=== PATIENT | male | born 1965 | race Caucasian/White ===

== ENCOUNTER 2022-04-21 13:05 | Emergency (ER) | payer MEDICARE, OTHER, MEDICAID, SELFPAY ==
[2022-04-21 13:11] VITALS: BP 130/84; PULSE 79; RESP 14; TEMP 36.9; O2SAT 98
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
[2022-04-21] MEDS: IBUPROFEN 400 MG TABLET PO (13:43)
--- NOTE | 2022-04-21 13:48 | ECG_ITS ---
Measurements Intervals [place] Rate: 123 P: 75 [place]: 121 QRS: 259 QRSD: 118 T: 60 QT: 304 QTc: 436 Interpretive Statements SINUS TACHYCARDIA RIGHT AXIS DEVIATION [QRS AXIS > 100] RIGHT BUNDLE BRANCH BLOCK [120+ ms QRS DURATION, UPRIGHT V1, 40+ ms S IN I/aVL/V4/V5/V6] ABNORMAL ECG Electronically Signed On 04-25-2022 9:54:16 CDT by Zach De Santiago M.D.
[2022-04-21 13:50] LABS: Basophils Percent Auto 0.2 % (0.2-1.2); Eosinophils Absolute Auto 0.2 K/mm3 (0-0.3); Eosinophils Percent Auto 1.8 % (0-4.4); Hematocrit 39.8 % (42.0-52.0); Hemoglobin 12.4 g/dL (14.0-18.0); Immature Granulocyte Absolute 0.03 K/mm3 (0.00-0.031); Immature Granulocyte Percent A 0.3 % (0-0.5); Lymphocytes Absolute Auto 1.06 K/mm3 (0.9-3.2); Lymphocytes Percent Auto 12.2 % (18.3-44.2); Mean Corpuscular HGB Conc 31.2 g/dl (32-36); Mean Corpuscular Volume 86.7 fl (80-100); Mean Platelet Volume 11.3 fl (7.4-10.4); Monocytes Absolute Auto 0.6 K/mm3 (0.1-0.6); Monocytes Percent Auto 7.4 % (2.6-8.5); Neutrophils Absolute Auto 6.8 K/mm3 (1.3-6.7); Neutrophils Percent Auto 78.1 % (45.5-73.1); Platelet Count Result 246 k/mm3 (150-375); Red Blood Count 4.59 M/mm3 (4.6-6.20); Red Cell Distribution Width 15.9 % (11.5-14.5); White Blood Count 8.7 K/mm3 (4.5-10.0)
[2022-04-21 13:58] LABS: Appearance Urine Clear (Clear); Bilirubin Urine Negative (Negative); Blood Urine Negative (Negative); Color Urine Yellow (Yellow); Glucose Urine UA Negative (Negative); Ketones Urine Negative (Negative); Leukocyte Esterase Ur Negative LEU/UL (Negative); Nitrate Urine Negative (Negative); Protein Urine Negative (Negative); Urobilinogen Urine 0.2 mg/dL (<2.0)
[2022-04-21 14:00] LABS: Alanine Aminotransferase 13 U/L (6-50); Alkaline Phosphatase 90 U/L (38-126); Anion Gap 10 mmol/L (8-16); Aspartate Amino Transferase 17 U/L (17-59); Bilirubin,Total 0.4 mg/dL (0.2-1.3); Blood Urea Nitrogen 21 mg/dL (9-20); Calcium 9.2 mg/dL (8.4-10.2); Carbon Dioxide 30 mmol/L (22-30); Chloride 97 mmol/L (98-107); Estimated CRCL calculation 121 ml/min; Estimated Glomerular Filt Rate > 60; Glucose 120 mg/dL (65-110); Potassium 3.1 mmol/L (3.4-5.0); Sodium 137 mmol/L (137-145)
[2022-04-21 14:03] LABS: Add Urine Microscopic? NO
[2022-04-21 14:14] LABS: Amphetamine Screen Urine Negative (Negative); Barbiturate Screen Urine Negative (Negative); Benzodiazepines Screen Urine Negative (Negative); Cannabinoid Screen Urine Negative (Negative); Cocaine Screen Urine Negative (Negative); Methadone Screen Urine Negative (Negative); Opiate Screen Urine Negative (Negative); Phencyclidine Screen Urine Negative (Negative)
--- NOTE | 2022-04-21 14:37 | PC.NURSE ---
when attempting to give patient PO potassium, pt refused and said piss on it. I don't want it. If the long-term would've been giving me my vitamins like they were supposed to, then I wouldn't need it . pt asked once again if he would take PO potassium. pt again stated, piss on it .
[2022-04-21 14:45] LABS: Acetaminophen < 10 ug/mL (10-30); Ethanol < 10 mg/dL (<10); Salicylate < 1.0 mg/dL (2-20)
--- NOTE | 2022-04-21 14:54 | PC.NURSE ---
EDP made aware of pt comments regarding PO medication and his refusal.
[2022-04-21 15:30] VITALS: BP 113/75; PULSE 80; RESP 14; O2SAT 100
[2022-04-21 16:29] VITALS: BP 142/78; PULSE 77; RESP 14; O2SAT 99
--- NOTE | 2022-04-21 17:47 | PC.NURSE ---
Jeb from crisis have eta of 20 min
[2022-04-21 17:56] LABS: SARS-CoV-2 RNA PCR Negative
--- NOTE | 2022-04-21 18:06 | PC.NURSE ---
[facility] at bedside to evlos pt
[2022-04-21 19:00] VITALS: BP 160/70; PULSE 70; RESP 14; O2SAT 100
--- NOTE | 2022-04-21 21:08 | PC.NURSE ---
[facility] called to ask triage question for questions. Pt refused to speak with [facility] intake at this time. Nurse will call back to speak with intake, call back number [phone]
--- NOTE | 2022-04-21 21:33 | PC.NURSE ---
[facility] called at this time and [facility] , deflected at this time. Crisis called and updated of no beds available and deflection at this time.
[2022-04-21] MEDS: NICOTINE (*PBKC) 21 MG PATCH 1 PATCH TRANSDERM (23:10)
[2022-04-21] MEDS: OLANZapine 10 MG INJ VIAL 5 MG IM (23:13)
[2022-04-21] MEDS: WATER, STERILE FOR INJECTION 10 ML VIAL XX (23:14)
[2022-04-21 23:16] VITALS: BP 157/66; PULSE 89; RESP 18; O2SAT 94
[2022-04-21 23:45] VITALS: BP 136/62; PULSE 87; RESP 20; O2SAT 98
--- NOTE | 2022-04-22 03:46 | PC.NURSE ---
[facility] has no beds available at this time and can try again in am per [facility], with Crisis, and no response from [facility] at this time.
[2022-04-22 05:04] VITALS: BP 165/87; PULSE 67; RESP 18; O2SAT 100
--- NOTE | 2022-04-22 05:10 | PC.NURSE ---
, [facility] Lois Ortiz,staff called for update of pt at this time and left number to be contacted for any new updates
--- NOTE | 2022-04-22 06:18 | PC.NURSE ---
Spoke with [facility], with crisis, no new update. Day shift crisis counslor will be starting shift in 10-15 minutes and then will re fax pt packet to [facility].
--- NOTE | 2022-04-22 07:12 | PC.NURSE ---
REport given to CHUN Pearson.
--- NOTE | 2022-04-22 09:16 | PC.NURSE ---
Spoke with Charleen with Crisis. faxed chart over to [facility] and [facility] and faxed face sheet to [facility].
--- NOTE | 2022-04-22 11:10 | PC.NURSE ---
Spoke with nurse from long-term asking for an update on patient disposition. Updated long-term that we do not have placement at this time. Spoke with Marce from [facility] who says [facility] denies admission due to pt medical needs.
--- NOTE | 2022-04-22 12:55 | PC.NURSE ---
[facility] called to speak with the pt. Pt was wheeled to the hallway to speak with them on the hallway phone. Pt got angry and hung up the phone during the conversation saying he was tired of being treated like a child and did not want to go to [facility].
[2022-04-22 13:30] VITALS: BP 124/66; PULSE 95; O2SAT 100
--- NOTE | 2022-04-22 18:18 | PC.NURSE ---
1700: kemar from crisis called regarding acceptance from any facility, no calls received 1709: spoke with kingsley at [facility], papers faxed 180: Kingsley at [facility] states he has not received paperwork yet 181: paperwork refaxed [phone] number verified with Hiram at [facility]
--- NOTE | 2022-04-22 18:59 | PC.NURSE ---
Called [facility], spoke with Danette and she confirmed fax was received at this time
--- NOTE | 2022-04-22 20:13 | PC.NURSE ---
[facility]risis states that [facility] attempted x3 different phone calls to contact facility and no answer, all mailboxes are full and no one will answer
--- NOTE | 2022-04-22 20:54 | PC.NURSE ---
facility contacted by charge nurse, ashley for patient to return to facility
[2022-04-22 21:45] VITALS: BP 120/70; PULSE 95; RESP 20; O2SAT 100
== END 2022-04-22 22:07 ==
PROVIDERS: Nurse Practitioner Family; Emergency Provider Emergency Medicine
DX: R45.6 Violent behavior (principal); Z20.822 Contact with and (suspected) exposure to COVID-19; I10 Essential (primary) hypertension; G35 Multiple sclerosis; I89.0 Lymphedema, not elsewhere classified; E66.01 Morbid (severe) obesity due to excess calories; Z68.41 Body mass index [BMI] 40.0-44.9, adult; N39.490 Overflow incontinence; F17.200 Nicotine dependence, unspecified, uncomplicated; R00.0 Tachycardia, unspecified; I45.10 Unspecified right bundle-branch block
CPT/HCPCS: 36415; 80053; 80307; 81003; 84443; 85025; 93005; 96372; 99284; A9270; C9803; U0003; U0005

== ENCOUNTER 2022-08-12 14:22 | Emergency (ER) | payer MEDICARE, OTHER, MEDICAID, SELFPAY ==
[2022-08-12] VITALS (22 sets, daily range): BP systolic 117–176; BP diastolic 69–85; PULSE 85–96; RESP 14–25; TEMP 36.1; O2SAT 92–100
--- NOTE | ~2022-08-12 | XR_ITS ---
Clinical Indication: Shortness of breath, covid 19 positive AP and lateral views of the chest: Comparison: None Findings: The lungs are clear, without evidence of focal consolidation or pleural effusion. Cardiome diastinal silhouette is unremarkable. Bones and soft tissues are unremarkable. Impression: Clear lungs. Reviewed, dictated and finalized at location [] [facility] [employer] Impression: Clear lungs.
--- NOTE | 2022-08-12 14:24 | ECG_ITS ---
Measurements Intervals [place] Rate: 95 P: 31 MO: 177 QRS: 18 QRSD: 110 T: 29 QT: 352 QTc: 443 Interpretive Statements SINUS RHYTHM POOR R-WAVE PROGRESSION COMPARED TO ECG 04/21/2022 13:48:27 THE PATIENT IS NO LONGER TACHYCARDIC AND THE RBBB HAS RESOLVED. Electronically Signed On 08-12-2022 15:49:46 TEST DEVELOPER by Rachelle Reeves M.D.
[2022-08-12 14:49] LABS: Hematocrit 39.5 % (42.0-52.0); Hemoglobin 12.5 g/dL (14.0-18.0); Mean Corpuscular HGB Conc 31.6 g/dl (32-36); Mean Corpuscular Hemoglobin 27.4 pg (26-34); Mean Corpuscular Volume 86.6 fl (80-100); Mean Platelet Volume 11.1 fl (7.4-10.4); Platelet Count Result 185 k/mm3 (150-375); Red Blood Count 4.56 M/mm3 (4.6-6.20); White Blood Count 13.2 K/mm3 (4.5-10.0)
[2022-08-12 15:03] LABS: Alanine Aminotransferase 19 U/L (6-50); Albumin Level 4.3 g/dL (3.5-5.1); Alkaline Phosphatase 76 U/L (38-126); Anion Gap 8 mmol/L (8-16); Aspartate Amino Transferase 22 U/L (17-59); Band Neutrophils Percent 16 % (0-6); Bilirubin,Total 0.4 mg/dL (0.2-1.3); Blood Urea Nitrogen 18 mg/dL (9-20); Calcium 8.5 mg/dL (8.4-10.2); Carbon Dioxide 28 mmol/L (22-30); Chloride 100 mmol/L (98-107); Estimated CRCL calculation 120 ml/min; Estimated Glomerular Filt Rate > 60; Glucose 112 mg/dL (65-110); Lymphocytes Absolute Manual 0.13 K/mm3 (1.1-4.5); Monocytes Absolute Manual 0.39 K/mm3 (0.1-0.90); Monocytes Percent Manual 3 % (3-9); Neutrophils Absolute Manual 12.67 K/mm3 (1.3-6.7); Neutrophils Percent Manual 80 % (46-73); Sodium 136 mmol/L (137-145); Total Cells Counted 100
[2022-08-12 15:04] LABS: Platelet Estimate Adequate (Adequate); Schistocytes None Seen (NORMAL)
--- NOTE | 2022-08-12 16:06 | ED.SOB ---
HPI - SOB/Dyspnea General Chief Complaint: Shortness of Breath/Dyspnea Stated Complaint: covid positive Time Seen by Provider: 08/12/22 14:36 History of Present Illness HPI Narrative: 57-year-old male presents from [facility] via EMS history of multiple sclerosis, COPD, depression, sleep apnea, hypertension presents to the emergency room stating he believes he is got pneumonia. Patient reports he has sinus congestion, productive cough and chest heaviness. States his symptoms been going on for a couple of days, and are similar to when he had pneumonia in the past. Patient also states that he was recently diagnosed with COVID. Related Data Allergies Allergy/AdvReac Type Severity Reaction Status Date / Time No Known Allergies Allergy Verified 04/21/22 13:17 Review of Systems Review of Systems: CONSTITUTIONAL: Denies fever, chills, or sweats. EYES: Denies visual changes, redness, or discharge. ENT: Reports sinus congestion CARDIOVASCULAR: Reports chest heaviness RESPIRATORY: Reports cough GASTROINTESTINAL: Denies abdominal pain, nausea, vomiting, or diarrhea. GENITOURINARY: Denies dysuria or hematuria. SKIN: Denies rash or itching. MUSCULOSKELETAL: Denies back pain, joint pain, or myalgia. NEUROLOGIC: Denies headache, numbness, dizziness, or weakness. PSYCHIATRIC: Denies anxiety or depression. [facility] Past Medical History Medical History Essential (primary) hypertension Morbid obesity MS (multiple sclerosis) Overflow incontinence Family History Family History Grandparent Family history of tuberculosis Hypertension Family history of malignant neoplasm Family history of heart disease in male family member before age 55 Sibling Family history of migraine headaches Hypertension Father Family history of malignant neoplasm Family history of heart disease in male family member before age 55 Mother Family history of malignant neoplasm Family history of heart disease in male family member before age 55 Social History Social History Smoking status: Light tobacco smoker Alcohol intake: current Substance use type: does not use Exam Narrative: GENERAL: Well-appearing, well-nourished, no physical limitations, and in no acute distress. HEAD: Normocephalic, atraumatic. EYES: Conjunctivae normal, PERRLA and EOMI. NECK: Supple. No adenopathy or masses. CHEST: Clear to auscultation. No respiratory distress. No wheezes rales or rhonchi. HEART: Regular rate and rhythm. No murmur heard. Normal peripheral pulses. ABDOMEN: Soft, nontender, nondistended, morbid obesity normal active bowel sounds. EXTREMITIES: Normal range of motion. No edema. No clubbing or cyanosis SKIN: Warm, dry, no rash. No noted wounds NEURO: No focal deficits. Alert and oriented x3. MAEW. CN's II-XI intact bilaterally PSYCH: Cooperative. Normal mood and affect. Course Vital Signs Vital signs: Vital Signs Temperature 36.1 C L 08/12/22 14:28 Pulse Rate 96 08/12/22 14:28 Respiratory Rate 14 08/12/22 14:28 Blood Pressure 117/81 08/12/22 14:28 Pulse Oximetry 98 08/12/22 14:28 Oxygen Delivery Room Air 08/12/22 14:28 Temperature 36.1 C L 08/12/22 14:28 Pulse Rate 92 08/12/22 16:45 Respiratory Rate 22 H 08/12/22 16:45 Blood Pressure 166/69 H 08/12/22 16:17 Pulse Oximetry 100 08/12/22 16:45 Oxygen Delivery Room Air 08/12/22 14:28 MDM - SOB/Dyspnea MDM Narrative Medical decision making narrative: 8-year-old male presents emergency room for evaluation of shortness of breath. Patient was recently diagnosed with COVID, and concerned that he might have developed pneumonia. Because of his dyspnea most likely related to COVID. Presentation not consistent with any acute cardiac etiology, his EKG showed no signs of ischemia. Chest x-ray s
[2022-08-12] MEDS: methylPREDNISolone SOD SUCC 125 MG VIAL IV PUSH (16:29)
[2022-08-12 17:10] LABS: D Dimer 0.57 ug/mL (<0.48)
[2022-08-12 17:22] LABS: Troponin I < 0.012 ng/mL (0.000-0.034)
[2022-08-12 17:32] LABS: NT Pro B Type Natriuretic Pept 211 pg/mL (5-100)
--- NOTE | 2022-08-12 18:48 | PC.NURSE ---
Pt. cleaned up, bedding change, given warm blanket
== END 2022-08-12 21:28 ==
PROVIDERS: Emergency Medicine; Emergency Provider Nurse Practitioner Family; PCP Internal Medicine
DX: U07.1 COVID-19 (principal); G35 Multiple sclerosis; J44.9 Chronic obstructive pulmonary disease, unspecified; I10 Essential (primary) hypertension; G47.30 Sleep apnea, unspecified; N39.490 Overflow incontinence; E66.01 Morbid (severe) obesity due to excess calories; Z68.41 Body mass index [BMI] 40.0-44.9, adult; R06.02 Shortness of breath; F17.200 Nicotine dependence, unspecified, uncomplicated
CPT/HCPCS: 36415; 71046; 80053; 83880; 84484; 85025; 85380; 93005; 96374; 99284; J2930

== ENCOUNTER 2022-10-17 08:00 | Emergency (ER) | payer MEDICARE, OTHER, MEDICAID, SELFPAY ==
[2022-10-17] VITALS (13 sets, daily range): BP systolic 187–188; BP diastolic 82–92; PULSE 60–77; RESP 16–20; TEMP 36.4; O2SAT 99–100
--- NOTE | 2022-10-17 09:04 | PC.NURSE ---
Care Coordination notified per patient request to be placed in a different facility.
[2022-10-17] MEDS: lisinopriL 20 MG TABLET PO (09:09)
[2022-10-17] MEDS: atenoloL 25 MG TABLET PO (09:09)
[2022-10-17] MEDS: hydroCHLOROthiazide 25 MG TABLET PO (09:09)
--- NOTE | 2022-10-17 09:46 | PCCCNOTE ---
Called to Ed to meet pt in rm 10. Pt is unhappy with care at current facility ([facility]). He would like to relocate to facility in [place] ( [facility]). I called [facility] and spoke with Milagros Moreira. Per Milagros pt was originally with [facility] and requested transfer to [facility] facility which was done. [facility] facility will not accept pt back. She states [facility] will accept pt back. Pt is [facility] resident and cost is covered by Medicaid and . I should get $30 flow thru. I attempted to call [facility] and was only able to get voice message and I left message.
--- NOTE | 2022-10-17 12:21 | PC.NURSE ---
Spoke to Suresh with care coordination at this time. He is working on placement for patient. Per Suresh he will come and update patient on plan of care. Hellen charge nurse notified
--- NOTE | 2022-10-17 12:47 | ED.GENADULT ---
HPI - General Adult General Chief complaint: Unspecified Stated complaint: htn Time Seen by Provider: 10/17/22 08:05 History of Present Illness HPI narrative: Patient is a 57-year-old male who presents to the ER with feeling angry at his retirement where he resides. Reports he did not bring him his hypertensive medication this morning when asked for and his blood pressure continued to climb so he decided come in for evaluation. He has no chest pain or chest pressure. No fever chills or sweats. He has no additional complaints other than wanting his morning medications. Related Data Allergies Allergy/AdvReac Type Severity Reaction Status Date / Time No Known Allergies Allergy Verified 04/21/22 13:17 Review of Systems Review of Systems: All systems reviewed & are unremarkable except as noted in HPI and below Constitutional: Constitutional: Denies chills and Denies fever(s) Cardiovascular: Cardiovascular: Denies chest pain, Reports leg edema (Chronic lymphedema) and Denies palpitations Respiratory: Respiratory: Denies cough, Denies dyspnea and Denies wheezing Gastrointestinal: Gastrointestinal: Denies abdominal pain, Denies nausea and Denies vomiting [facility] Past Medical History Medical History (Updated 10/17/22 @ 14:36 by Hiram Chapa MD) Chronic acquired lymphedema Essential (primary) hypertension Morbid obesity MS (multiple sclerosis) Overflow incontinence Family History Family History Grandparent Family history of tuberculosis Hypertension Family history of malignant neoplasm Family history of heart disease in male family member before age 55 Sibling Family history of migraine headaches Hypertension Father Family history of malignant neoplasm Family history of heart disease in male family member before age 55 Mother Family history of malignant neoplasm Family history of heart disease in male family member before age 55 Social History Social History Smoking status: Light tobacco smoker Alcohol intake: current Substance use type: does not use Exam Narrative: GENERAL: Well-appearing, morbidly obese, and in no acute distress. HEAD: Normocephalic, atraumatic. CHEST: Clear to auscultation. No respiratory distress. HEART: Regular rate and rhythm. Normal peripheral pulses. ABDOMEN: Soft, nontender, nondistended. EXTREMITIES: Normal range of motion. Left knee with mild bilateral lower extremities with chronic stasis changes. SKIN: Warm, dry, no rash. NEURO: Alert and oriented x3. PSYCH: Normal mood and affect. Course Course Emergency Course: Patient has been given home antihypertensives with improvement of blood pressure is the 150 systolic. Care coordination has been to speak with the patient about different nursing findings. Discharge. Vital Signs Vital signs: Vital Signs Temperature 97.6 F 10/17/22 07:53 Pulse Rate 71 10/17/22 07:53 Respiratory Rate 20 10/17/22 07:53 Blood Pressure 188/92 H 10/17/22 07:53 Pulse Oximetry 100 10/17/22 07:53 Oxygen Delivery Room Air 10/17/22 07:53 Temperature 97.6 F 10/17/22 07:53 Pulse Rate 71 10/17/22 13:00 Respiratory Rate 18 10/17/22 13:00 Blood Pressure 187/82 H 10/17/22 09:11 Pulse Oximetry 99 10/17/22 11:06 Oxygen Delivery Room Air 10/17/22 07:53 Medical Decision Making Vital Signs Vital Signs: Vital Signs Temperature 97.6 F 10/17/22 07:53 Pulse Rate 71 10/17/22 07:53 Respiratory Rate 20 10/17/22 07:53 Blood Pressure 188/92 H 10/17/22 07:53 Pulse Oximetry 100 10/17/22 07:53 Oxygen Delivery Room Air 10/17/22 07:53 Temperature 97.6 F 10/17/22 07:53 Pulse Rate 71 10/17/22 13:00 Respiratory Rate 18 10/17/22 13:00 Blood Pressure 187/82 H 10/17/22 09:11 Pulse Oximetry 99 10/17/22 11:06 Oxygen Delivery Room Air 10/17/22 07:53 Dis
--- NOTE | 2022-10-17 16:15 | PC.NURSE ---
pt sitting in wheelchair in hallway refusing to go back into room, pt demanding to go outside for a cigarette. pt informed he isn't allowed to go outside and smoke that he needed to continue to wait inside his room for EMS transport back to facility. pt yelling that he hasn't had anything to eat all day, pt was eating a sandwich upon initial assessment at 11:00. pt asked earlier if he wanted food and he said its just going to make him go to the bathroom more. pt wheeling self out to ED lobby while yelling and swearing at staff. mitochondrial disorders counselor Phyllis aware of situation, out to waiting room to talk to pt.
--- NOTE | 2022-10-17 16:28 | PC.NURSE ---
Patient given cab voucher, and assisted to waiting room due to patient insisting on smoking while waiting. Pt informed that this was a smoke free campus and pt stated he didn't care.
== END 2022-10-17 16:34 ==
PROVIDERS: Emergency Provider Emergency Medicine; PCP Internal Medicine
DX: I10 Essential (primary) hypertension (principal); G35 Multiple sclerosis; I89.0 Lymphedema, not elsewhere classified; N39.490 Overflow incontinence; E66.01 Morbid (severe) obesity due to excess calories; Z68.42 Body mass index [BMI] 45.0-49.9, adult; F17.200 Nicotine dependence, unspecified, uncomplicated
CPT/HCPCS: 99283; A9270

== ENCOUNTER 2023-09-02 00:17 | Inpatient (IN) | payer MEDICARE, OTHER, MEDICAID, SELFPAY ==
[2023-09-02] VITALS (10 sets, daily range): BP systolic 116–191; BP diastolic 52–89; PULSE 89–107; RESP 15–27; TEMP 36.5–38; O2SAT 92–100; BMI 52.2
--- NOTE | ~2023-09-02 | US_ITS ---
EXAMINATION: US venous doppler [facility] DATE: 09/02/2023 16:27 INDICATION: Left lower limb swelling. TECHNIQUE: Grayscale ultrasound images without and with compression and Doppler ultrasound images of the bilateral lower extremity veins were obtained. COMPARISON: None. FINDINGS: The visualized portions of right common femoral vein, profunda (deep) femoral vein, femoral vein, pop liteal vein, posterior tibial veins, and greater saphenous vein outflow are patent. The visualized portions of left common femoral vein, profunda femoral vein, femoral vein, popliteal v ein, posterior tibial veins, and greater saphenous vein outflow are patent. IMPRESSION: 1. No deep venous thrombosis. Reviewed, dictated and finalized at location E. EY RIDE OPERATOR
--- NOTE | ~2023-09-02 | XR_ITS ---
AP and lateral views of the left femur Clinical History: Infection Findings: No acute fracture or dislocation is seen. Osseous alignment is anatomic. Visualized joint s paces are grossly preserved. There is diffuse nonspecific subcutaneous soft tissue edema. Impression: Diffuse nonspecific subcutaneous soft tissue edema. Correlate bursitis or bland edema. No osseous or articular abnormality evident. Reviewed, dictated and finalized at [facility]. MAKER CUSTOM Impression: Diffuse nonspecific subcutaneous soft tissue edema. Correlate bursitis or bland edema. No osseous or articular abnormality evident.
--- NOTE | ~2023-09-02 | XR_ITS ---
Clinical Indication: Dyspnea AP and lateral views of the chest: Comparison: 08/12/2022 Findings: The lungs are clear, without evidence of focal consolidation or pleural effusion. Cardiome diastinal silhouette is within normal limits. Bones and soft tissues are unremarkable. Impression: Clear lungs. Reviewed, dictated and finalized at location . T DESK COORDINATOR Impression: Clear lungs.
--- NOTE | ~2023-09-02 | XR_ITS ---
AP and lateral views of the left tibia/fibula Clinical History: Infection Findings: No acute fracture or dislocation is seen. Osseous alignment is anatomic. Joint spaces are p reserved without significant erosive or degenerative change. There is diffuse soft tissue edema. Impression: Diffuse soft tissue edema, nonspecific. Correlate for bursitis or bland edema. No osseous or articular abnormality. Reviewed, dictated and finalized at [facility]. R Impression: Diffuse soft tissue edema, nonspecific. Correlate for bursitis or bland edema. No osseous or articular abnormality.
--- NOTE | ~2023-09-02 | XR_ITS ---
Left foot Technique: AP and lateral views were obtained. Clinical History: Infection Findings: No acute fracture or dislocation is seen. Osseous alignment is anatomic. Joint spaces are p reserved without erosive or degenerative change. Soft tissues are unremarkable. Impression: Unremarkable left foot radiographs. Reviewed, dictated and finalized at [facility]. OLE RAISER LOCKSTITCH Impression: Unremarkable left foot radiographs.
--- NOTE | 2023-09-02 00:58 | ECG_ITS ---
Measurements Intervals [place] Rate: 105 P: 21 [place]: 175 QRS: 71 QRSD: 100 T: 58 QT: 333 QTc: 442 Interpretive Statements SINUS TACHYCARDIA POOR R WAVE PROGRESSION, CONSIDER ANTERIOR INFARCT MINIMAL Q WAVES- INFERIOR LEADS BASELINE ARTIFACT- I, II, III, AVR, AVL, AVF, V1-V6 ABNORMAL ECG COMPARED TO ECG 08/12/2022 14:35:51 SINUS TACHYCARDIA NOW PRESENT Electronically Signed On 09-02-2023 6:52:58 EMERGENCY ROOM DOCTOR by Catracho Perez D.O.
--- NOTE | 2023-09-02 01:14 | ED.GENADULT ---
HPI - General Adult General Chief complaint: Extremity Injury, Lower Stated complaint: BLE EDEMA, PAIN, REDNESS, WHEEPING Source: patient Limitations: no limitations History of Present Illness HPI narrative: Patient is a 58-year-old male presents to the emergency department complaining of swelling in his legs. Patient states he has been having swelling in his legs for the past year on-call sides however today the left side got more swollen and red. Patient denies any recent antibiotic use. Patient denies fevers, diarrhea, melena, hematochezia, dysuria, hematuria, urinary frequency, urinary urgency, recent injuries, recent illness, sore throat, nasal congestion, numbness, weakness. Patient states he typically uses a walker to ambulate. Patient admits to shortness of breath today and was gradually and has not tried anything for it. Patient admits to having chest pain is entire life but states he has noticed a little bit more over the past few days, the middle of his chest, feels like truck is driving into it, nonradiating, tried ibuprofen, has not noticed anything making it better or worse and states that the pain comes and goes and has numbness in the ring and undergo a. Patient denies history of blood clots. Patient denies any new change medications. Patient denies history of heart disease. Patient is to being a smoker but denies history of COPD recent breathing treatments at home. Patient is to history of high blood pressure. Patient denies history of high cholesterol or diabetes. Related Data Allergies Allergy/AdvReac Type Severity Reaction Status Date / Time No Known Allergies Allergy Verified 04/21/22 13:17 Review of Systems Review of Systems: A 10 system review of systems was completed on the patient and is negative except for what is stated in the HPI. Nursing and ancillary documentation was reviewed. [facility] Past Medical History Medical History (Updated 09/02/23 @ 05:42 by Kentrell Orozco DO) Chronic acquired lymphedema Essential (primary) hypertension Morbid obesity MS (multiple sclerosis) Overflow incontinence Family History Family History Grandparent Family history of tuberculosis Hypertension Family history of malignant neoplasm Family history of heart disease in male family member before age 55 Sibling Family history of migraine headaches Hypertension Father Family history of malignant neoplasm Family history of heart disease in male family member before age 55 Mother Family history of malignant neoplasm Family history of heart disease in male family member before age 55 Social History Social History Smoking status: Light tobacco smoker Alcohol intake: current Substance use type: does not use Comments At time of signature, I have reviewed and agree with nursing past medical, surgical, social and family history unless otherwise noted. Please see the nursing chart for further information. There is no relevant family history pertinent to the presenting complaint. Exam Narrative: CONST: No acute distress. Obese. HENMT: Head is normocephalic and atraumatic. Dry mucous membranes. No posterior oropharynx erythema. EYES: No conjunctival icterus, injection, or pallor. PERRL. NECK: No meningeal signs. RESP: Able to speak in full sentences. Normal respiratory effort. diffuse scant end-expiratory wheeze. No focal adventitious breath sounds. Tachypneic. CARDIO: Tachycardic rate. Regular rhythm. 2+ DP and radial pulses bilaterally. GI: Nondistended. No tenderness to palpation. Soft. : No CVA tenderness to palpation. No Perineal or penile or scrotal erythema or fluctuance or crepitus or tenderness to palpation. SKIN: Diffuse erythema and warmth throughout the left lower extremity from the toes to the upper thigh without palpable fluctuance, no crepitus, erythema b
[2023-09-02] MEDS: IPRATROPIUM BR 0.02% INH SOLN 0.5 MG/2.5 ML VIAL INHALATION (01:20)
[2023-09-02] MEDS: ALBUTEROL SULFATE NEB 2.5 MG/3 ML INH INHALATION (01:20)
[2023-09-02] MEDS: ASPIRIN 325 MG TABLET PO (01:31)
[2023-09-02] MEDS: methylPREDNISolone SOD SUCC 40 MG VIAL IV PUSH (01:58)
[2023-09-02 02:01] LABS: Basophils Absolute Auto 0.1 K/mm3 (0.0-0.1); Basophils Percent Auto 0.3 % (0.2-1.2); Hematocrit 33.2 % (42.0-52.0); Hemoglobin 10.3 g/dL (14.0-18.0); Immature Granulocyte Absolute 0.24 K/mm3 (0.00-0.031); Immature Granulocyte Percent A 1.5 % (0-0.5); Lymphocytes Absolute Auto 0.37 K/mm3 (0.9-3.2); Lymphocytes Percent Auto 2.2 % (18.3-44.2); Mean Corpuscular Hemoglobin 26.1 pg (26-34); Mean Corpuscular Volume 84.1 fl (80-100); Mean Platelet Volume 9.9 fl (7.4-10.4); Monocytes Absolute Auto 0.5 K/mm3 (0.1-0.6); Neutrophils Absolute Auto 15.4 K/mm3 (1.3-6.7); Platelet Count Result 274 k/mm3 (150-375); Red Blood Count 3.95 M/mm3 (4.6-6.20); Red Cell Distribution Width 16.8 % (11.5-14.5); White Blood Count 16.5 K/mm3 (4.5-10.0)
[2023-09-02 02:08] LABS: INR 1.1
[2023-09-02 02:09] LABS: Magnesium 1.7 mg/dL (1.6-2.3); Partial Thromboplastin Time 47.8 SECONDS (22.3-36.8)
[2023-09-02 02:16] LABS: Alanine Aminotransferase 20 U/L (6-50); Albumin Level 2.9 g/dL (3.5-5.1); Alkaline Phosphatase 112 U/L (38-126); Anion Gap 7 mmol/L (8-16); Aspartate Amino Transferase 23 U/L (17-59); Bilirubin,Total 0.5 mg/dL (0.2-1.3); Blood Urea Nitrogen 15 mg/dL (9-20); Calcium 8.3 mg/dL (8.4-10.2); Carbon Dioxide 23 mmol/L (22-30); Chloride 98 mmol/L (98-107); Estimated CRCL calculation 169 ml/min; Estimated Glomerular Filt Rate > 60; Glucose 120 mg/dL (65-110); Lipase 67 U/L (23-300); Potassium 3.6 mmol/L (3.4-5.0); Sodium 128 mmol/L (137-145)
[2023-09-02 02:17] LABS: NT Pro B Type Natriuretic Pept 630 pg/mL (19.9-100)
[2023-09-02 02:20] LABS: Troponin I < 0.012 ng/mL (0.000-0.034)
[2023-09-02 02:32] LABS: CRP 23.7 mg/dL (<1.0)
[2023-09-02 02:47] LABS: D Dimer 0.88 ug/mL (<0.48)
[2023-09-02 02:55] LABS: Lactic Acid Reflex 0.7 mmol/L (0.7-2.0)
[2023-09-02 03:02] LABS: Influenza A QL RT-PCR Negative (Negative); Influenza B QL RT-PCR Negative (Negative); RSV RNA, RT-PCR Negative (Negative); SARS-CoV-2 RNA PCR Negative (Negative)
[2023-09-02] MEDS: CEFEPIME 2 GM/NS 50 ML 2 GM/50 ML BAG IVPB (03:12)
[2023-09-02] MEDS: metroNIDAZOLE 500 MG/ISO 100ML 500 MG/100 ML BAG 100 MG IVPB (05:13)
[2023-09-02 05:23] LABS: Appearance Urine Cloudy (Clear); Bacteria Urine None Seen /hpf; Bilirubin Urine Negative (Negative); Blood Urine 3+ (Negative); Color Urine Dark Yellow (Yellow); Glucose Urine UA Negative (Negative); Ketones Urine 1+ mg/dL (Negative); Leukocyte Esterase Ur Negative LEU/UL (Negative); Nitrate Urine Negative (Negative); Non Pathogenic Casts 0-2; Protein Urine 1+ mg/dL (Negative); RBC Urine >100 /hpf (0-2); Specific Grav Ur 1.028 (1.001-1.035); Squamous Epithelial Cell Urine None seen /hpf (Few); WBC Urine 0-5 /hpf; pH Urine 5.5 (5.0-9.0)
[2023-09-02 05:32] LABS: Add Urine Microscopic? YES
[2023-09-02 05:42] LABS: Troponin I < 0.012 ng/mL (0.000-0.034)
[2023-09-02] MEDS: VANCOMYCIN 1,250 MG/NS 250 ML 1,250 MG/250 ML BAG 166.67 MG IVPB (06:14)
[2023-09-02 06:29] LABS: MRSA (PCR) NOT DETECTED (NOT DETECTE)
[2023-09-02 08:34] LABS: Troponin I < 0.012 ng/mL (0.000-0.034)
[2023-09-02] MEDS: SODIUM CHLORIDE 0.9% IV 1,000 ML 125 ML IV CONT (14:12)
[2023-09-02] MEDS: VANCOMYCIN 1,500 MG/NS 500 ML 1,500 MG/500 ML BAG 250 MG IVPB (16:15)
--- NOTE | 2023-09-02 18:15 | PM.IMHP ---
H&P: HPI History of Present Illness Date/Time: 09/02/23 18:15 Chief Complaint: leg pain and swelling Narrative: 58M w/ PMH morbid obesity, chronic lymphedema, HTN, MS, tobacco abuse, long time resident of [facility] typically uses walker to ambulate presents with complains of SOB and leg pain and swelling. He reports swelling for a long time, as he does have lymphedema. However the left side became more swollen and red. He also complains of shortness of breath which has been progressing up to admission. He admits to chest pain mid sternal which is heavy, non radiating without aggravating or relieving symptoms but has been there his entire life. He denies fever, n/v/d, abdominal pain. Review of Systems Review of Systems: All systems reviewed & are unremarkable except as noted in HPI and below (HPI) [facility] Past Medical History Medical History (Updated 09/02/23 @ 05:42 by Kentrell Orozco DO) Chronic acquired lymphedema Essential (primary) hypertension Morbid obesity MS (multiple sclerosis) Overflow incontinence Family History Family History Grandparent Family history of tuberculosis Hypertension Family history of malignant neoplasm Family history of heart disease in male family member before age 55 Sibling Family history of migraine headaches Hypertension Father Family history of malignant neoplasm Family history of heart disease in male family member before age 55 Mother Family history of malignant neoplasm Family history of heart disease in male family member before age 55 Social History Social History Smoking status: Never smoker Alcohol intake: never Substance use type: does not use Do You Feel Safe in your Home?: No Lack of Transportation: No Lack of Food: Never True Current Housing: I Have Housing Concerned About Future Housing: No Difficulty Paying Gas/Electric Bills: No Difficulty Paying for Meds: No Currently Unemployed: No Education: Don't Know Difficulty w/ Childcare or Family Care: No Spiritual care concerns: No Meds Home Medications and Allergies Home Medications Medication Instructions Recorded Confirmed Type ascorbic acid (vitamin C) 500 mg 500 mg PO DAILY 09/02/23 09/02/23 History tablet atenolol 25 mg tablet 25 mg PO DAILY 09/02/23 09/02/23 History docusate sodium 100 mg tablet 100 mg PO DAILY 09/02/23 09/02/23 History furosemide 20 mg tablet 20 mg PO DAILY 09/02/23 09/02/23 History lisinopril 20 mg tablet 20 mg PO DAILY 09/02/23 09/02/23 History meclizine 25 mg tablet 25 mg PO DAILY 09/02/23 09/02/23 History miconazole nitrate 2 % topical 1 applic topical DAILY 09/02/23 09/02/23 History powder quetiapine 50 mg tablet (Seroquel) 50 mg PO HS 09/02/23 09/02/23 History silver sulfadiazine 1 % topical 1 applic topical DAILY 09/02/23 09/02/23 History cream (Silvadene) Allergies Allergy/AdvReac Type Severity Reaction Status Date / Time No Known Allergies Allergy Verified 04/21/22 13:17 Vital Signs Vital Signs - 24 hr 09/02/23 00:15 09/02/23 01:21 09/02/23 01:30 Temperature Pulse Rate 107 H 102 H 103 H Respiratory Rate 23 H 22 H 27 H Blood Pressure 149/54 H Pulse Oximetry 100 Oxygen Delivery Room Air 09/02/23 02:29 09/02/23 05:19 09/02/23 06:30 Temperature Pulse Rate 92 99 103 H Respiratory Rate 15 24 H 24 H Blood Pressure 173/75 H 170/78 H 175/89 H Pulse Oximetry 97 96 96 Oxygen Delivery 09/02/23 07:30 09/02/23 09:06 09/02/23 14:00 Temperature 97.7 F 100.4 F H Pulse Rate 89 102 H 103 H Respiratory Rate 20 18 20 Blood Pressure 191/76 H 137/64 143/52 H Pulse Oximetry 92 96 93 Oxygen Delivery Exam Const: General: comfortable and no acute distress Other: obese Eyes: Pupils: Equal, round and reactive pupils present Resp: Effort & Inspection: normal respiratory effo
[2023-09-03] MEDS: IPRATROPIUM BR 0.02% INH SOLN 0.5 MG/2.5 ML VIAL INHALATION ×3 (02:30→13:12)
[2023-09-03] MEDS: ALBUTEROL SULFATE NEB 2.5 MG/3 ML INH INHALATION ×3 (02:30→13:13)
[2023-09-03 02:31] VITALS: PULSE 91; RESP 20
[2023-09-03] MEDS: VANCOMYCIN 1,500 MG/NS 500 ML 1,500 MG/500 ML BAG 250 MG IVPB (04:21)
[2023-09-03 04:57] VITALS: BP 120/52; PULSE 87; RESP 22; TEMP 37.1; O2SAT 98
[2023-09-03 06:39] LABS: Basophils Percent Auto 0.3 % (0.2-1.2); Eosinophils Absolute Auto 0.1 K/mm3 (0-0.3); Hematocrit 32.1 % (42.0-52.0); Hemoglobin 9.5 g/dL (14.0-18.0); Immature Granulocyte Absolute 0.17 K/mm3 (0.00-0.031); Immature Granulocyte Percent A 1.3 % (0-0.5); Lymphocytes Percent Auto 8.7 % (18.3-44.2); Mean Corpuscular HGB Conc 29.6 g/dl (32-36); Mean Corpuscular Hemoglobin 25.6 pg (26-34); Mean Corpuscular Volume 86.5 fl (80-100); Mean Platelet Volume 10.2 fl (7.4-10.4); Monocytes Absolute Auto 0.9 K/mm3 (0.1-0.6); Monocytes Percent Auto 7.3 % (2.6-8.5); Neutrophils Absolute Auto 10.3 K/mm3 (1.3-6.7); Neutrophils Percent Auto 81.4 % (45.5-73.1); Platelet Count Result 285 k/mm3 (150-375); Red Blood Count 3.71 M/mm3 (4.6-6.20); Red Cell Distribution Width 17.2 % (11.5-14.5); White Blood Count 12.7 K/mm3 (4.5-10.0)
[2023-09-03 06:41] LABS: Anion Gap 6 mmol/L (8-16); Blood Urea Nitrogen 12 mg/dL (9-20); Calcium 8.4 mg/dL (8.4-10.2); Carbon Dioxide 27 mmol/L (22-30); Chloride 105 mmol/L (98-107); Estimated CRCL calculation 149 ml/min; Estimated Glomerular Filt Rate > 60; Glucose 110 mg/dL (65-110); Potassium 3.3 mmol/L (3.4-5.0); Sodium 138 mmol/L (137-145)
[2023-09-03 06:57] LABS: Procalcitonin 0.6 ng/mL
[2023-09-03 08:08] VITALS: PULSE 95; RESP 20; O2SAT 93
[2023-09-03 08:21] VITALS: PULSE 94; RESP 20
[2023-09-03 13:13] VITALS: PULSE 91; RESP 20
[2023-09-03 13:27] VITALS: PULSE 94; RESP 20
--- NOTE | 2023-09-03 14:45 | PC.NURSE ---
patient refusing labs and antibiotics. He slammed his hand on the table and started yelling at myself and the clinical lab scientist. He stated he wants to go back to the [place], he never wanted to come in to the hospital in the first place. He is also angry that he isn't able to eat what he wants because we have him following a heart healthy diet. Called Dr gómez to inform him of the patients behavior as well as refusal to be treated. discharge pending.
--- NOTE | 2023-09-03 15:15 | PM.DS ---
DS: Admitting Diagnosis Discharge Date 09/03/23 Admitting Diagnosis shortness of breath DS: Summary Hospital Course Hospital Course: 58M w/ PMH morbid obesity, chronic lymphedema, HTN, MS, tobacco abuse, long time resident of [facility] typically uses walker to ambulate presents with complains of SOB and leg pain and swelling. He reports swelling for a long time, as he does have lymphedema. However the left side became more swollen and red. He also complains of shortness of breath which has been progressing up to admission. He admits to chest pain mid sternal which is heavy, non radiating without aggravating or relieving symptoms but has been there his entire life. Pt was treated for cellulitis of lower extremities and sepsis, however on 09/03/23 he became cantankerous with staff, refusing IV meds, meds, vitals, blood draws. He was even refusing to converse about the risks of denying suggested healthcare. An attempt was made to educate the patient on the risks of leaving against medical advice, but he became verbally aggressive. The patient is signing out AMA but for logistical purposes so he can obtain a transport back to his SNF, a discharge order will be entered. The patient was full code during his stay. More than 30 minutes spent on discharge planning and documentation. Time Spent with Patient Time attestation: Total time spent providing and/or coordinating discharge services: Exam Const: General: comfortable and no acute distress Other: obese, aggravated Resp: Effort & Inspection: normal respiratory effort Auscultation: clear to auscultation bilaterally Cardio: Rate: regular rate Rhythm: regular rhythm Extrem: General: edema DS: Data Data Completed and Pending Labs on day of discharge: Labs from last 24 hours 09/03/23 05:58 WBC 12.7 H RBC 3.71 L Hgb 9.5 L Hct 32.1 L MCV 86.5 MCH 25.6 L MCHC 29.6 L RDW 17.2 H Plt Count 285 MPV 10.2 Immature Gran % (Auto) 1.3 H Neut % (Auto) 81.4 H Lymph % (Auto) 8.7 L Cocke % (Auto) 7.3 Eos % (Auto) 1.0 Baso % (Auto) 0.3 Lymph # (Auto) 1.10 Cocke # (Auto) 0.9 H Eos # (Auto) 0.1 Baso # (Auto) 0.0 Abs Immat Gran (auto) 0.17 H Absolute Neuts (auto) 10.3 H Absolute Nucleated RBC 0.0 Nucleated RBC % 0.0 Sodium 138 Potassium 3.3 L Chloride 105 Carbon Dioxide 27 Anion Gap 6 L BUN 12 Creatinine 0.80 Estim Creat Clear Calc 149 Estimated GFR > 60 Glucose 110 Calcium 8.4 Magnesium 2.0 Procalcitonin 0.6 Preliminary micro results at discharge 09/02/23 01:28 Blood Culture - Preliminary Blood 09/02/23 01:28 Blood Culture - Preliminary Blood Discharge Plan Discharge Attending physician on discharge: Monserrat Howard Consulting providers: Zack Nguyen Discharging Clinician: Monserrat Howard Patient Disposition: SNF Activity: december shower Diet: heart healthy Stand Alone Forms: General Discharge Information Discharge Medications: Continued lisinopril 20 mg Tablet 20 mg PO DAILY atenolol 25 mg Tablet 25 mg PO DAILY ascorbic acid (vitamin C) 500 mg Tablet 500 mg PO DAILY meclizine 25 mg Tablet 25 mg PO DAILY Rx Instructions: wednesday, wednesday and wednesday furosemide 20 mg Tablet 20 mg PO DAILY docusate sodium 100 mg Tablet 100 mg PO DAILY miconazole nitrate 2 % Powder 1 applic TOPICAL DAILY Rx Instructions: Apply to groin and abdominal folds silver sulfadiazine [Silvadene] 1 % Cream 1 applic TOPICAL DAILY Rx Instructions: apply a 1.5 mm thickness to :LLE quetiapine [Seroquel] 50 mg Tablet 50 mg PO HS Date of admission: 09/02/23 05:40 Primary Care Provider: PHYSICIAN,TIRE DESIGN ENGINEER Admitting Provider: [place] Day Attending physician on admission: [place] Day Condition: Guarded Prognosis
--- NOTE | 2023-09-03 16:15 | PC.NURSE ---
report called to Dina RICHTER to Roxy MCCOLLUM. ambulance on its way. d/c papers faxed
--- NOTE | 2023-09-03 18:46 | PC.NURSE ---
patient left by ems, leg had small skin tear while getting on stretcher. wrapped with blue chucks d/t weeping and unable to attach a dressing.
== END 2023-09-03 18:35 | DRG 603 ==
LOC: ANHED 07:09 → ANH3MEDSUR 07:45
PROVIDERS: Admitting Provider Family Medicine; Emergency Provider Student in an Organized Health Care Education/Training Program; Visit Provider General Practice
DX: L03.116 Cellulitis of left lower limb (principal); Z68.43 Body mass index [BMI] 50.0-59.9, adult; E66.01 Morbid (severe) obesity due to excess calories; F17.290 Nicotine dependence, other tobacco product, uncomplicated; G35 Multiple sclerosis; I89.0 Lymphedema, not elsewhere classified; I10 Essential (primary) hypertension; Z20.822 Contact with and (suspected) exposure to COVID-19
CPT/HCPCS: 36415; 71046; 73552; 73590; 73620; 80048; 80053; 81001; 83605; 83690; 83735; 83880; 84145; 84443; 84484; 85025; 85380; 85610; 85730; 86140; 87040; 87637; 87641; 93005; 93970; 94640; 96365; 96367; 96375; 99285; A9270; J0692; J1836; J2920; J3370; J7030

== ENCOUNTER 2023-10-23 18:29 | Inpatient (IN) | payer MEDICARE, MEDICAID, SELFPAY ==
[2023-10-23] VITALS (12 sets, daily range): BP systolic 120–146; BP diastolic 54–73; PULSE 87–97; RESP 22–28; TEMP 36.9; O2SAT 98–100
--- NOTE | ~2023-10-23 | CT_ITS ---
EXAMINATION: CTA chest PE abdomen pel DATE: 10/23/2023 20:58 INDICATION: dyspneic TECHNIQUE: Computed tomography angiography (CTA) of the chest was performed with 100 mL Omnipaque-350 intravenous contrast timed to evaluate the pulmonary arteries, followed by portal venous phase imagi ng of the abdomen and pelvis. Coronal maximum intensity projection 3D-reconstructions were created by the technologist. The dose-length product (DLP) was 2620.04 mGy-cm. Automated exposure control and i terative reconstruction technique were employed. COMPARISON: None. FINDINGS: CHEST: Lung parenchyma and airways: Motion artifact throughout the lungs. Dependent atelectasis. Clear airwa ys. Pleura: Unremarkable. Thoracic inlet, axillae and chest wall: Bilateral symmetric gynecomastia. Thoracic aorta: Normal. Mediastinum: Normal. Heart and pericardium: Mildly enlarged heart. No pericardial effusion. Coronary artery calcifications: Moderate. Thoracic bones: No acute osseous finding. Pulmonary arteries: Study quality: Nondiagnostic level of arterial enhancement (150 HU at the main pu lmonary artery). There is motion artifact, beam hardening and significant quantum mottle from arm pos itioning and body habitus. ABDOMEN/PELVIS: Significant quantum mottle. The left lateral abdomen is excluded from the [id number]. Liver: Enlarged Biliary/Gallbladder: No bile duct dilation. Pancreas: No mass or duct dilation. Spleen: Normal. Adrenals:No mass. Kidneys: Indeterminate density 4.0 cm right midpole mass. No hydronephrosis. GI tract: No small or large bowel dilation. Normal appendix. Mesentery/Peritoneum: No ascites, mass, or free air. Retroperitoneum: No mass. Enlarged lymph nodes in the bilateral external iliac change and in the infe rior left periaortic space. Pelvis: No bladder wall thickening. Prostatomegaly. Soft Tissues: Marked left and moderate right inguinal lymphadenopathy. Abdominopelvic bones: No acute osseous finding. IMPRESSION: This examination is nondiagnostic with respect to the diagnosis of pulmonary embolus. Consider altern ative examination such as VQ scanning. CTPA should only be repeated if a larger bore IV (18-gauge or larger) can be obtained in the antecubital fossa or more proximally and if the patient is able to lundberg se his arms for the scan. Hepatomegaly. Indeterminate 4.0 cm right midpole renal mass. Recommend nonemergent but timely CT or MRI of the abdo men and pelvis without and with contrast for further evaluation. Periaortic, bilateral iliac, and bilateral inguinal lymphadenopathy. Reviewed, dictated and finalized at location K. NDING UROLOGIST IMPRESSION: This examination is nondiagnostic with respect to the diagnosis of pulmonary em bolus. Consider alternative examination such as VQ scanning. CTPA should only b e repeated if a larger bore IV (18-gauge or larger) can be obtained in the ante cubital fossa or more proximally and if the patient is able to raise his arms f or the scan. Hepatomegaly. Indeterminate 4.0 cm right midpole renal mass. Recommend nonemergent but timely CT or MRI of the abdomen and pelvis without and with contrast for further eval uation. Periaortic, bilateral iliac, and bilateral inguinal lymphadenopathy.
--- NOTE | ~2023-10-23 | CT_ITS ---
EXAMINATION: CT abdomen wo/w con DATE: 10/28/2023 15:44 INDICATION: Renal mass TECHNIQUE: Computed tomography (CT) of the abdomen was performed without and with 100 mL Omnipaque-35 0 intravenous contrast. Automated exposure control and iterative reconstruction technique were employ ed. The dose-length product was 2524.51 mGy-cm. COMPARISON: 10/23/2023 FINDINGS: Small right and trace left pleural effusions. Mild dependent atelectasis in bilateral lower lobes. He art size normal. Atherosclerotic coronary artery calcific a. Minimal pericardial effusion. Liver, gal lbladder, spleen, pancreas and bilateral adrenal glands are normal. Bilateral nonobstructing nephroli thiasis with couple 1 mm stones in the right kidney and a 3 mm stone at the upper pole the left kidne y. There is a 4.1 cm mass at the anterior right kidney which demonstrates slightly greater than simpl e fluid attenuation of 15 HU on the precontrast image and with mild heterogeneous enhancement with a few of 50-55 on the postcontrast images consistent with solid neoplasm concerning for renal cell carc inoma. Visualized portions of bowels including the appendix are normal. Small amount of gas within th e nondependent bladder. No pathologically enlarged abdominal or upper pelvic lymphadenopathy. Mild to moderate thoracic and lumbar spondylosis. IMPRESSION: 1. 4.1 cm enhancing right renal mass consistent with renal cell carcinoma. 2. Bilateral nonobstructing nephrolithiasis. 3. Small right and trace left pleural effusions with dependent atelectasis in the lower lobes. 4. Small focus of gas in the nondependent bladder. Correlate clinically for recent Molina catheterizat ion or recent bladder instrumentation. Reviewed, dictated and finalized at location L. ACCOUNTS CLERK IMPRESSION: 1. 4.1 cm enhancing right renal mass consistent with renal cell carcinoma. 2. Bilateral nonobstructing nephrolithiasis. 3. Small right and trace left pleural effusions with dependent atelectasis in t he lower lobes. 4. Small focus of gas in the nondependent bladder. Correlate clinically for rec ent Molina catheterization or recent bladder instrumentation.
--- NOTE | ~2023-10-23 | CT_ITS ---
CT OF left lower extremity EXAMINATION: CT LE LT w con DATE: 10/23/2023 20:20 INDICATION: TECHNIQUE: Computed tomography (CT) of the left lower extremity was performed with 100 mL Omnipaque 3 50 intravenous contrast. Automated exposure control and iterative reconstruction technique were emplo yed. The dose-length product was 1915.89 mGy-cm. COMPARISON: None FINDINGS: Marked left pelvic and inguinal lymph node enlargement. Moderate right inguinal lymph node enlargemen t. Subcutaneous stranding throughout the thigh, with posterior medial dermal thickening. Severe stran ding and fluid present from the level of the knee to the ankle, with severe dermal thickening. No def inite deep space involvement. No rim-enhancing fluid collections detected. Mild bilateral hip osteoar thritis. Mild knee osteoarthritic arthritis. Small volume knee joint fluid. Mild dermal thickening an d subcutaneous stranding noted in the right lower extremity. IMPRESSION: Severe left lower extremity dermal thickening and subcutaneous inflammation/fluid, with marked inguin al and pelvic lymphadenopathy. May represent severe cellulitis in the appropriate clinical context. N o abscess detected. Incidental note of moderate right inguinal lymphadenopathy and mild edema/cellulitis in the right low er extremity. Reviewed, dictated and finalized at location K. PER LAYER AND EXAMINER SOFT WORK IMPRESSION: Severe left lower extremity dermal thickening and subcutaneous inflammation/flu id, with marked inguinal and pelvic lymphadenopathy. May represent severe cellu litis in the appropriate clinical context. No abscess detected. Incidental note of moderate right inguinal lymphadenopathy and mild edema/cellu litis in the right lower extremity.
--- NOTE | ~2023-10-23 | CT_ITS ---
EXAMINATION: CT brain wo con DATE: 10/23/2023 20:20 INDICATION: altered mental status . TECHNIQUE: Computed tomography (CT) of the head was performed without intravenous contrast. The mA wa s adjusted according to patient size. Iterative reconstruction technique was employed. The dose-lengt h product was 908.00 mGy-cm. COMPARISON: None. FINDINGS: No acute intracranial hemorrhage or extra-axial fluid collection. Moderate enlargement of the lateral and third ventricles. Mild sulcal effacement near the vertex. Mod erate patchy low density white matter change. No mass or herniation. No acute ischemic infarct. Unremarkable dural venous sinus attenuation. No acute osseous abnormality. Small retention cyst/polyp in the inferior right maxillary sinus, ethmoid mucosal thickening, the rem aining aerated spaces are clear. Atherosclerotic intracranial calcifications. IMPRESSION: CT findings may represent normal pressure hydrocephalus in the appropriate context, versus prominent central atrophy and moderate cerebral small vessel disease. Reviewed, dictated and finalized at location K. OTYPE FABRICATOR IMPRESSION: CT findings may represent normal pressure hydrocephalus in the appropriate cont ext, versus prominent central atrophy and moderate cerebral small vessel diseas e.
--- NOTE | ~2023-10-23 | US_ITS ---
EXAMINATION: US venous doppler [facility] DATE: 10/28/2023 15:54 INDICATION: Lower limb edema. TECHNIQUE: Grayscale ultrasound images without and with compression and Doppler ultrasound images of the bilateral lower extremity veins were obtained. COMPARISON: Ultrasound 09/02/2023 FINDINGS: The visualized portions of right common femoral vein, profunda (deep) femoral vein, femoral vein, pop liteal vein, peroneal veins, posterior tibial veins, and greater saphenous vein outflow are patent. The visualized portions of left common femoral vein, profunda femoral vein, femoral vein, popliteal v ein, and greater saphenous vein outflow are patent. The calf veins are not evaluated due to bandage o r wrapping material. IMPRESSION: 1. No deep venous thrombosis. Reviewed, dictated and finalized at location A. OWING MACHINE OPERATOR
--- NOTE | ~2023-10-23 | XR_ITS ---
EXAMINATION: XR chest 1V portable Exam Date/Time: 10/23/2023 19:35 PSYCHOLOGIST COUNSELING HISTORY: sepsis Comparison: 09/02/2023. RESULT: Lines, tubes, and devices: None. Lungs and pleura: Low lung volumes with crowding. No focal consolidation, pleural effusion, or pneum othorax. Cardiomediastinal silhouette: Stable. Other: No acute osseous or upper abdominal finding. IMPRESSION: No acute cardiopulmonary process. Reviewed, dictated and finalized at location K. HOLOGIST COUNSELING
--- NOTE | 2023-10-23 18:46 | ECG_ITS ---
Measurements Intervals [place] Rate: 89 P: 58 MN: 175 QRS: 47 QRSD: 114 T: 55 QT: 341 QTc: 416 Interpretive Statements SINUS RHYTHM MODERATE INTRAVENTRICULAR CONDUCTION DELAY [110+ ms QRS DURATION] BORDERLINE ECG COMPARED TO ECG 09/02/2023 00:23:47 HEART RATE HAS DECREASED INTRAVENTRICULAR CONDUCTION DELAY NOW PRESENT Electronically Signed On 10-24-2023 18:10:14 FIELD RADIO TECHNICIAN by Eliu Dale M.D.
--- NOTE | 2023-10-23 18:55 | ED.WEAKNESS ---
HPI - Weakness General Chief complaint: Weakness Stated complaint: CODE SEPSIS Time Seen by Provider: 10/23/23 18:33 History of Present Illness HPI Narrative: 4-year-old male with history of MS, hypertension, morbid obesity presents via EMS from [facility] for swelling and weeping to his left lower extremity and concern for sepsis. Patient states his left leg has been red for ?a long time?. States it has been getting worse to the past few weeks. He is reporting shortness of breath and a cough and is audibly wheezing on exam. He reports chest pain he describes as tightness that is central, nonradiating, no aggravating or alleviating factors. States this pain is been going on for months. Denies abdominal pain, nausea vomiting, diarrhea, dysuria or hematuria. He does report urinary frequency and urgency. Patient reports history of COPD. He denies smoking, however there is a pack of cigarettes and in his pocket. Denies known history of heart disease or heart failure. Patient was hospitalized on 09/02/2023 for sepsis and cellulitis to his left lower extremity. He left AMA a day later after the being aggressive with staff and denying IV meds, vitals, blood draws. Per EMS, the patient had a fever of 103 earlier today and was given Tylenol prior to arrival. He is afebrile upon arrival. Patient desires to be DNR/DNI, paperwork from senior living review which confirms DNR. Related Data Home Medications Medication Instructions Recorded Confirmed ascorbic acid (vitamin C) 500 mg 500 mg PO DAILY 09/02/23 09/02/23 tablet atenolol 25 mg tablet 25 mg PO DAILY 09/02/23 09/02/23 docusate sodium 100 mg tablet 100 mg PO DAILY 09/02/23 09/02/23 furosemide 20 mg tablet 20 mg PO DAILY 09/02/23 09/02/23 lisinopril 20 mg tablet 20 mg PO DAILY 09/02/23 09/02/23 meclizine 25 mg tablet 25 mg PO DAILY 09/02/23 09/02/23 miconazole nitrate 2 % topical 1 applic topical DAILY 09/02/23 09/02/23 powder quetiapine 50 mg tablet (Seroquel) 50 mg PO HS 09/02/23 09/02/23 silver sulfadiazine 1 % topical 1 applic topical DAILY 09/02/23 09/02/23 cream (Silvadene) Allergies Allergy/AdvReac Type Severity Reaction Status Date / Time No Known Allergies Allergy Verified 04/21/22 13:17 Review of Systems Review of Systems: CONSTITUTIONAL: See HPI EYES: Denies visual changes, redness, or discharge. ENT: Denies rhinorrhea, congestion, sore throat, or otalgia. CARDIOVASCULAR: See HPI RESPIRATORY: See HPI GASTROINTESTINAL: Denies abdominal pain, nausea, vomiting, or diarrhea. GENITOURINARY: See HPI SKIN: Denies rash or itching. MUSCULOSKELETAL: Denies back pain, joint pain, or myalgia. NEUROLOGIC: Denies headache, numbness, or weakness. PSYCHIATRIC: Denies anxiety or depression. [facility] Past Medical History Medical History Chronic acquired lymphedema Essential (primary) hypertension Morbid obesity MS (multiple sclerosis) Overflow incontinence Family History Family History Grandparent Family history of tuberculosis Hypertension Family history of malignant neoplasm Family history of heart disease in male family member before age 55 Sibling Family history of migraine headaches Hypertension Father Family history of malignant neoplasm Family history of heart disease in male family member before age 55 Mother Family history of malignant neoplasm Family history of heart disease in male family member before age 55 Social History Social History Smoking status: Never smoker Alcohol intake: never Substance use type: does not use Do You Feel Safe in your Home?: No Lack of Transportation: No Lack of Food: Never True Current Housing: I Have Housing Concerned About Future Housing: No Difficulty Paying Gas/Electric Bills: No Difficulty Paying for
[2023-10-23] MEDS: IPRATROPIUM 0.5 MG/ALBUTEROL SULFATE 2.5 MG AMPUL.NEB 3 ML INHALATION (19:09)
[2023-10-23] MEDS: ALBUTEROL SULFATE NEB 2.5 MG/3 ML INH INHALATION (19:09)
[2023-10-23 19:22] LABS: Alveolar/Arterial O2 Gradient 38.2 mmHg; Base Excess ABG 2.6 mEq/l (+/-2.0); Device ROOM AIR; Fractional Inspired Oxygen 21 %; HCO3 ABG 26.4 mEq/l (22.0-26.0); Modified Allen's Test Pass; Oxygen Content ABG 14.8 %vol (16.0-22.0); Oxygen Saturation ABG 94.1 % (95.0-100.0); Oxyhemoglobin 91.9 % THb (90.0-100.0); PO2 FiO2 Ratio Arterial Blood 3.14 %; Site Drawn LEFT RADIAL; Total Hemoglobin 11.4 g/dL (12.0-18.0)
[2023-10-23] MEDS: SODIUM CHLORIDE 0.9% IV 1,000 ML 999 ML IV CONT ×2 (19:33→19:34)
[2023-10-23] MEDS: methylPREDNISolone SOD SUCC 125 MG VIAL IV PUSH (19:33)
[2023-10-23] MEDS: ASPIRIN 81 MG CHEWABLE TABLET 324 MG PO (19:34)
[2023-10-23 19:52] LABS: Basophils Absolute Auto 0.1 K/mm3 (0.0-0.1); Basophils Percent Auto 0.3 % (0.2-1.2); Eosinophils Absolute Auto 0.1 K/mm3 (0-0.3); Eosinophils Percent Auto 0.6 % (0-4.4); Hematocrit 35.1 % (42.0-52.0); Hemoglobin 10.7 g/dL (14.0-18.0); Immature Granulocyte Absolute 0.31 K/mm3 (0.00-0.031); Immature Granulocyte Percent A 1.6 % (0-0.5); Lymphocytes Absolute Auto 0.48 K/mm3 (0.9-3.2); Lymphocytes Percent Auto 2.4 % (18.3-44.2); Mean Corpuscular HGB Conc 30.5 g/dl (32-36); Mean Corpuscular Hemoglobin 25.1 pg (26-34); Mean Corpuscular Volume 82.4 fl (80-100); Mean Platelet Volume 10.8 fl (7.4-10.4); Monocytes Absolute Auto 0.5 K/mm3 (0.1-0.6); Monocytes Percent Auto 2.6 % (2.6-8.5); Neutrophils Absolute Auto 18.2 K/mm3 (1.3-6.7); Neutrophils Percent Auto 92.5 % (45.5-73.1); Platelet Count Result 220 k/mm3 (150-375); Red Blood Count 4.26 M/mm3 (4.6-6.20); Red Cell Distribution Width 17.3 % (11.5-14.5); White Blood Count 19.6 K/mm3 (4.5-10.0)
[2023-10-23 19:56] LABS: Estimated CRCL calculation 94 ml/min; Estimated Glomerular Filt Rate 56
[2023-10-23 20:01] LABS: Appearance Urine Clear (Clear); Bacteria Urine None Seen /hpf; Bilirubin Urine Negative (Negative); Blood Urine Negative (Negative); Color Urine Dark Yellow (Yellow); Glucose Urine UA Negative (Negative); Ketones Urine Negative (Negative); Leukocyte Esterase Ur Negative LEU/UL (Negative); Nitrate Urine Negative (Negative); Non Pathogenic Casts 0-2; Protein Urine 1+ mg/dL (Negative); RBC Urine 0-2 /hpf (0-2); Specific Grav Ur 1.021 (1.001-1.035); Squamous Epithelial Cell Urine None seen /hpf (Few); WBC Urine 0-5 /hpf; pH Urine 5.5 (5.0-9.0)
[2023-10-23 20:03] LABS: INR 1.1; Partial Thromboplastin Time 39.9 SECONDS (22.3-36.8); Prothrombin Time 14.7 Seconds (11.1-14.7)
[2023-10-23 20:03] LABS: Lactic Acid Reflex 1.2 mmol/L (0.7-2.0)
[2023-10-23 20:04] LABS: Add Urine Microscopic? YES
[2023-10-23 20:06] LABS: Ammonia < 9 umol/L (9-30)
[2023-10-23 20:07] LABS: Alanine Aminotransferase 26 U/L (6-50); Albumin Level 3.1 g/dL (3.5-5.1); Alkaline Phosphatase 112 U/L (38-126); Anion Gap 4 mmol/L (8-16); Aspartate Amino Transferase 37 U/L (17-59); Bilirubin,Total 0.6 mg/dL (0.2-1.3); Blood Urea Nitrogen 21 mg/dL (9-20); Calcium 8.6 mg/dL (8.4-10.2); Carbon Dioxide 29 mmol/L (22-30); Chloride 98 mmol/L (98-107); Estimated CRCL calculation 110 ml/min; Estimated Glomerular Filt Rate > 60; Glucose 113 mg/dL (65-110); Lipase 32 U/L (23-300); Magnesium 1.8 mg/dL (1.6-2.3); Potassium 3.4 mmol/L (3.4-5.0); Sodium 131 mmol/L (137-145)
[2023-10-23 20:18] LABS: NT Pro B Type Natriuretic Pept 3460 pg/mL (19.9-100)
[2023-10-23 20:29] LABS: Influenza A QL RT-PCR Negative (Negative); Influenza B QL RT-PCR Negative (Negative); RSV RNA, RT-PCR Negative (Negative); SARS-CoV-2 RNA PCR Negative (Negative)
[2023-10-23 20:37] LABS: CRP 30.5 mg/dL (<1.0)
[2023-10-23] MEDS: IPRATROPIUM BR 0.02% INH SOLN 0.5 MG/2.5 ML VIAL 1 MG INHALATION (21:04)
[2023-10-23] MEDS: ALBUTEROL SULFATE NEB 2.5 MG/3 ML INH 10 MG INHALATION (21:04)
[2023-10-23] MEDS: VANCOMYCIN 1,250 MG/NS 250 ML 1,250 MG/250 ML BAG 166.67 MG IVPB (22:04)
[2023-10-23] MEDS: PIPERACILLIN/TAZ 4.5G/NS 100ML 4.5 GM/100 ML BAG IVPB (22:04)
--- NOTE | 2023-10-23 23:30 | PM.IMHP ---
H&P: HPI History of Present Illness Date/Time: 10/23/23 23:30 Chief Complaint: Weakness/swelling of left lower extremity. This is a 58-year-old male patient with a past medical history of MS, morbid obesity chronic lymphedema chronic hypertension who came to the emergency room for swelling and weeping of his left extremity and concern for sepsis. Patient noticed that his left leg has been red for a long time said that it is getting worse for the past few weeks. Also complained of shortness of breath and dry cough. He also complains of chest pain as tightness that is central non radiation or no aggravating or alleviating factors. Patient awake in moderate distress on BiPAP he is not a very good historian. Vital signs in the emergency room were stable. CBC showed WBC count of 19.6 hemoglobin 10.7 hematocrit 35.1 platelets count 220. ABG showed pH of 7.460 pCO2 38.0 PO2 66.0 bicarb 26.4. Oxygen saturation 94.1%. CMP showed sodium 131 potassium 3.4 chloride 98 carbon dioxide 29 BUN 21 creatinine 1.30. Troponin was 0.470. C-reactive protein was 30.5. ProBNP was 3460. Urinalysis unremarkable. Influenza RSV and COVID negative. CTA chest showed nondiagnostic exam with with respect to diagnosis of pulmonary embolism. Hepatomegaly. Indeterminate 4.0 cm right mid pole renal mass. Joyce aortic bilateral iliac and bilateral inguinal lymphadenopathy. CT left lower extremity showed severe left lower extremity dermal thickening and subcutaneous inflammation/fluid. With mild inguinal and pelvic lymphadenopathy. May represent severe cellulitis in the appropriate clinical context no abscess detected. CT head showed normal-pressure hydrocephalus versus prominent central atrophy and moderate are both small vessel disease. Chest x-ray showed no acute cardiopulmonary abnormality. EKG showed normal sinus rhythm. Patient was given IV vancomycin and IV Zosyn in the emergency room. Patient was given IV steroids and was placed on BiPAP in the emergency room. Review of Systems Review of Systems: A 12 point review of system is done and is only positive dictated in the history of present illness. [facility] Past Medical History Medical History Chronic acquired lymphedema Essential (primary) hypertension Morbid obesity MS (multiple sclerosis) Overflow incontinence Family History Family History Grandparent Family history of tuberculosis Hypertension Family history of malignant neoplasm Family history of heart disease in male family member before age 55 Sibling Family history of migraine headaches Hypertension Father Family history of malignant neoplasm Family history of heart disease in male family member before age 55 Mother Family history of malignant neoplasm Family history of heart disease in male family member before age 55 Social History Social History Smoking status: Never smoker Alcohol intake: never Substance use type: does not use Do You Feel Safe in your Home?: No Lack of Transportation: No Lack of Food: Never True Current Housing: I Have Housing Concerned About Future Housing: No Difficulty Paying Gas/Electric Bills: No Difficulty Paying for Meds: No Currently Unemployed: No Education: Don't Know Difficulty w/ Childcare or Family Care: No Spiritual care concerns: No Meds Home Medications and Allergies Home Medications Medication Instructions Recorded Confirmed Type ascorbic acid (vitamin C) 500 mg 500 mg PO DAILY 09/02/23 09/02/23 History tablet atenolol 25 mg tablet 25 mg PO DAILY 09/02/23 09/02/23 History docusate sodium 100 mg tablet 100 mg PO DAILY 09/02/23 09/02/23 History furosemide 20 mg tablet 20 mg PO DAILY 09/02/23 09/02/23 History lisinopril 20 mg tablet 20 mg PO DAILY 09/02/23 09/02/23 History meclizin
--- NOTE | 2023-10-23 23:31 | ECG_ITS ---
Measurements Intervals [place] Rate: 88 P: 51 AK: 166 QRS: 21 QRSD: 122 T: 33 QT: 379 QTc: 460 Interpretive Statements SINUS RHYTHM MODERATE INTRAVENTRICULAR CONDUCTION DELAY [110+ ms QRS DURATION] LOW-VOLTAGE QRS IN PRECORDIAL LEADS BORDERLINE ECG COMPARED TO ECG 10/23/2023 19:06:41 NO SIGNIFICANT CHANGES Electronically Signed On 10-24-2023 18:17:46 HEADLIGHT ASSEMBLER by Eliu Dale M.D.
[2023-10-23 23:58] LABS: Troponin I 0.325 ng/mL (0.000-0.034)
[2023-10-24] VITALS (31 sets, daily range): BP systolic 102–133; BP diastolic 47–114; PULSE 74–95; RESP 20–28; TEMP 36.2–37.5; O2SAT 94–100; BMI 51.7
[2023-10-24] MEDS: VANCOMYCIN 1,250 MG/NS 250 ML 1,250 MG/250 ML BAG 166.67 MG IVPB (00:41)
[2023-10-24] MEDS: IPRATROPIUM 0.5 MG/ALBUTEROL SULFATE 2.5 MG AMPUL.NEB 3 ML INHALATION ×4 (01:27→20:48)
--- NOTE | 2023-10-24 02:15 | ADMGEN ---
This patient, Leobardo Loredo, was admitted to IMU Room 213-01. Patient/family oriented to hospital policies and general routines including ID bracelet, bed and alarms, visiting hours, pain management, procedures, bathroom and other care routines, personal items, smoking policy, room service/diet, and visiting hours. Information on how to activate the Rapid Response Team has been discussed. Patient/Family are encouraged to report perceived risks to care and to ask questions if they do not understand what they are told or what they should do.
[2023-10-24 04:49] LABS: Estimated CRCL calculation 120 ml/min; Estimated Glomerular Filt Rate > 60
[2023-10-24] MEDS: PIPERACILLIN/TAZ 4.5G/NS 100ML 4.5 GM/100 ML BAG IVPB ×2 (05:00→08:47)
[2023-10-24] MEDS: methylPREDNISolone SOD SUCC 125 MG VIAL 60 MG IV PUSH ×3 (05:48→16:49)
[2023-10-24] MEDS: ENOXAPARIN 40 MG/0.4 ML SYRINGE SUB-Q (08:48)
[2023-10-24] MEDS: VANCOMYCIN 1,500 MG/NS 500 ML 1,500 MG/500 ML BAG 250 MG IVPB ×2 (10:42→22:29)
--- NOTE | 2023-10-24 12:56 | PM.IMPN ---
Progress Note: A&P Assessment and Plan (1) Sepsis: Qualifiers: Sepsis acute organ dysfunction status: with acute organ dysfunction Sepsis type: sepsis due to unspecified organism Severe sepsis acute organ dysfunction type: encephalopathy Severe sepsis shock status: without septic shock Qualified Code(s): A41.9 - Sepsis, unspecified organism; R65.20 - Severe sepsis without septic shock; G93.41 - Metabolic encephalopathy Code(s): A41.9 - Sepsis, unspecified organism Status: Acute (2) Cellulitis: Qualifiers: Laterality: left Site of cellulitis: extremity Site of cellulitis of extremity: lower extremity Qualified Code(s): L03.116 - Cellulitis of left lower limb Code(s): L03.90 - Cellulitis, unspecified Status: Acute (3) COPD exacerbation: Code(s): J44.1 - Chronic obstructive pulmonary disease with (acute) exacerbation Status: Acute (4) Renal mass: Code(s): N28.89 - Other specified disorders of kidney and ureter Status: Acute Plan [age] year old male with history of MS hypertension morbid obesity presented to the ER via EMS from [facility] for swelling and weeping from his left lower extremity and concern for sepsis. Patient stated his left leg has been red for a long time. He states she has and past few weeks. Was also reporting shortness of breath and cough and audible wheeze reports chest pain which describes as tightness without any aggravating or elevating factors. Denies any abdominal pain nausea vomiting. Reports history of COPD no prior history of smoking. He was hospitalized in August 2023 for sepsis and cellulitis to his lower extremities but left against medical advise at daily to her after being aggressive with the staff and chest vitals meds and blood draws. Per EMS she had fever of 103 uric today and was given Tylenol prior to arrival. Vitals were stable on ED arrival. Was afebrile. He was tachypneic in 25 inspiratory rate and hence was placed on BiPAP for labor breathing. ABG showed alkalosis with normal pCO2. Laboratory evaluation showed leukocytosis of 19 K with no bands hemoglobin is 10.7 which is around baseline Chem panel showed sodium of 131 BUN of 21 crit UA is without infection COVID flu RSV is negative. Chest x-ray showed no acute cardiopulmonary disease. Lactic acid is normal at 1.2. CT head given altered mental status showed findings is a normal pressure hydrocephalus versus prominent central atrophy and moderate cerebral small-vessel disease. CT of the left lower extremity showed severe left lower extremity dermal thickening and subcutaneous inflammation and fluid with marked inguinal and pelvic lymphadenopathy consistent with cellulitis. No abscess detected. There is incidental note of moderate right inguinal lymphadenopathy and mild edema cellulitis in the right lower extremity. CTA PE is nondiagnostic for PE. Suspected to have COPD exacerbation and was placed on Solu Medrol. CT abdomen pelvis showed hepatomegaly indeterminate 4.0 cm right pole renal mass with recommendations for non emergent CT or MRI. There is evidence of. Aortic bilateral inguinal and bilateral iliac lymphadenopathy. EKG shows sinus rhythm no ischemic changes initial troponin was 0.470 subsequent level was 0.3. Continue DuoNeb take him off of BiPAP and will use p.r.n.. Continue IV antibiotics as ordered with vancomycin will change Zosyn to cefepime ABG 7.46///. Morbid obesity DVT prophylaxis Lovenox Subjective Date/time seen: 10/24/23 12:56 Interval history: [age] year old male with history of MS hypertension morbid obesity presented to the ER via EMS from [facility] for swelling and weeping from his left lower extremity and concern for sepsis. Patient stated his left leg has been red for a long time. He states she has and past few weeks. Was also reporting shortness of breath and cough and audible wheeze reports chest pain whic
[2023-10-24] MEDS: CEFEPIME 1 GM/NS 50 ML 1 GM/50 ML BAG IVPB ×2 (16:48→21:55)
[2023-10-24] MEDS: MICONAZOLE NITRATE 2% CREAM 30 GM TUBE 1 APPLIC TOPICAL (16:49)
[2023-10-24] MEDS: POTASSIUM CHLORIDE 20 MEQ ER TABLET PO (16:49)
[2023-10-24] MEDS: FUROSEMIDE 40 MG TABLET PO (16:49)
[2023-10-24] MEDS: TOLNAFTATE 1% POWDER 45 GM BTL 1 APPLIC TOPICAL (21:50)
--- NOTE | 2023-10-24 21:54 | PC.NURSE ---
Patient is refusing to have his Troponin drawn.
[2023-10-25] VITALS (16 sets, daily range): BP systolic 120–166; BP diastolic 59–90; PULSE 68–96; RESP 18–28; TEMP 36.3–36.5; O2SAT 93–98
[2023-10-25] MEDS: methylPREDNISolone SOD SUCC 125 MG VIAL 60 MG IV PUSH ×3 (00:06→11:55)
[2023-10-25] MEDS: CEFEPIME 1 GM/NS 50 ML 1 GM/50 ML BAG IVPB ×3 (06:09→20:52)
[2023-10-25] MEDS: IPRATROPIUM 0.5 MG/ALBUTEROL SULFATE 2.5 MG AMPUL.NEB 3 ML INHALATION ×2 (07:09→21:18)
[2023-10-25] MEDS: hydroCHLOROthiazide 25 MG TABLET PO (08:14)
[2023-10-25] MEDS: lisinopriL 20 MG TABLET PO (08:14)
[2023-10-25] MEDS: THERAPEUTIC MULTIVITAMINS/MINERALS TAB (*BKC) 1 TABLET PO (08:14)
[2023-10-25] MEDS: FUROSEMIDE 40 MG TABLET PO ×2 (08:14→16:57)
[2023-10-25] MEDS: POTASSIUM CHLORIDE 20 MEQ ER TABLET PO ×2 (08:14→16:57)
[2023-10-25] MEDS: ENOXAPARIN 40 MG/0.4 ML SYRINGE SUB-Q (08:15)
[2023-10-25] MEDS: atenoloL 25 MG TABLET PO (08:15)
[2023-10-25] MEDS: MECLIZINE HCL 25 MG TABLET PO (08:22)
[2023-10-25 09:45] LABS: Basophils Percent Auto 0.2 % (0.2-1.2); Eosinophils Absolute Auto 0.1 K/mm3 (0-0.3); Eosinophils Percent Auto 0.4 % (0-4.4); Hematocrit 33.4 % (42.0-52.0); Hemoglobin 10.1 g/dL (14.0-18.0); Immature Granulocyte Percent A 1.4 % (0-0.5); Lymphocytes Absolute Auto 0.52 K/mm3 (0.9-3.2); Lymphocytes Percent Auto 2.4 % (18.3-44.2); Mean Corpuscular HGB Conc 30.2 g/dl (32-36); Mean Corpuscular Hemoglobin 24.9 pg (26-34); Mean Corpuscular Volume 82.5 fl (80-100); Mean Platelet Volume 10.7 fl (7.4-10.4); Monocytes Absolute Auto 0.4 K/mm3 (0.1-0.6); Monocytes Percent Auto 1.9 % (2.6-8.5); Neutrophils Absolute Auto 19.9 K/mm3 (1.3-6.7); Neutrophils Percent Auto 93.7 % (45.5-73.1); Platelet Count Result 203 k/mm3 (150-375); Red Blood Count 4.05 M/mm3 (4.6-6.20); Red Cell Distribution Width 17.2 % (11.5-14.5); White Blood Count 21.2 K/mm3 (4.5-10.0)
[2023-10-25 10:01] LABS: Vancomycin Trough 10.6 ug/mL (10.0-20.0)
[2023-10-25] MEDS: VANCOMYCIN 1,500 MG/NS 500 ML 1,500 MG/500 ML BAG 250 MG IVPB ×2 (10:39→18:35)
[2023-10-25 10:40] LABS: Crenated RBC 2+ (NORMAL); Platelet Estimate Adequate (Adequate); Schistocytes None Seen (NORMAL)
[2023-10-25 10:50] LABS: Alanine Aminotransferase 23 U/L (6-50); Alkaline Phosphatase 131 U/L (38-126); Anion Gap 6 mmol/L (8-16); Aspartate Amino Transferase 24 U/L (17-59); Bilirubin,Total 0.3 mg/dL (0.2-1.3); Blood Urea Nitrogen 24 mg/dL (9-20); Calcium 8.6 mg/dL (8.4-10.2); Carbon Dioxide 25 mmol/L (22-30); Chloride 106 mmol/L (98-107); Estimated CRCL calculation 149 ml/min; Estimated Glomerular Filt Rate > 60; Glucose 211 mg/dL (65-110); Magnesium 2.3 mg/dL (1.6-2.3); Potassium 3.5 mmol/L (3.4-5.0); Sodium 137 mmol/L (137-145)
[2023-10-25] MEDS: TOLNAFTATE 1% POWDER 45 GM BTL 1 APPLIC TOPICAL ×2 (11:55→20:52)
--- NOTE | 2023-10-25 12:04 | PM.IMPN ---
Progress Note: A&P Assessment and Plan (1) Sepsis: Qualifiers: Sepsis acute organ dysfunction status: with acute organ dysfunction Sepsis type: sepsis due to unspecified organism Severe sepsis acute organ dysfunction type: encephalopathy Severe sepsis shock status: without septic shock Qualified Code(s): A41.9 - Sepsis, unspecified organism; R65.20 - Severe sepsis without septic shock; G93.41 - Metabolic encephalopathy Code(s): A41.9 - Sepsis, unspecified organism Status: Acute (2) Cellulitis: Qualifiers: Laterality: left Site of cellulitis: extremity Site of cellulitis of extremity: lower extremity Qualified Code(s): L03.116 - Cellulitis of left lower limb Code(s): L03.90 - Cellulitis, unspecified Status: Acute (3) COPD exacerbation: Code(s): J44.1 - Chronic obstructive pulmonary disease with (acute) exacerbation Status: Acute (4) Renal mass: Code(s): N28.89 - Other specified disorders of kidney and ureter Status: Acute Plan [age] year old male with history of MS hypertension morbid obesity presented to the ER via EMS from [facility] for swelling and weeping from his left lower extremity and concern for sepsis. Patient stated his left leg has been red for a long time. He states she has and past few weeks. Was also reporting shortness of breath and cough and audible wheeze reports chest pain which describes as tightness without any aggravating or elevating factors. Denies any abdominal pain nausea vomiting. Reports history of COPD no prior history of smoking. He was hospitalized in August 2023 for sepsis and cellulitis to his lower extremities but left against medical advise at daily to her after being aggressive with the staff and chest vitals meds and blood draws. Per EMS she had fever of 103 uric today and was given Tylenol prior to arrival. Vitals were stable on ED arrival. Was afebrile. He was tachypneic in 25 inspiratory rate and hence was placed on BiPAP for labor breathing. ABG showed alkalosis with normal pCO2. Laboratory evaluation showed leukocytosis of 19 K with no bands hemoglobin is 10.7 which is around baseline Chem panel showed sodium of 131 BUN of 21 crit UA is without infection COVID flu RSV is negative. Chest x-ray showed no acute cardiopulmonary disease. Lactic acid is normal at 1.2. CT head given altered mental status showed findings is a normal pressure hydrocephalus versus prominent central atrophy and moderate cerebral small-vessel disease. CT of the left lower extremity showed severe left lower extremity dermal thickening and subcutaneous inflammation and fluid with marked inguinal and pelvic lymphadenopathy consistent with cellulitis. No abscess detected. There is incidental note of moderate right inguinal lymphadenopathy and mild edema cellulitis in the right lower extremity. CTA PE is nondiagnostic for PE. Suspected to have COPD exacerbation and was placed on Solu Medrol. Will taper of Solu Medrol. CT abdomen pelvis showed hepatomegaly indeterminate 4.0 cm right pole renal mass with recommendations for non emergent CT or MRI. There is evidence of. Aortic bilateral inguinal and bilateral iliac lymphadenopathy. EKG shows sinus rhythm no ischemic changes initial troponin was 0.470 subsequent level was 0.3. Continue DuoNeb take him off of BiPAP and will use p.r.n.. Continue IV antibiotics as ordered with vancomycin will change Zosyn to cefepime ABG 7.46/38/66/26. Bacteremia Gram-positive cocci in cluster appeared today already on vancomycin IV. Will await finalization Morbid obesity DVT prophylaxis Lovenox Subjective Date/time seen: 10/25/23 12:04 Interval history: [age] year old male with history of MS hypertension morbid obesity presented to the ER via EMS from [facility] for swelling and weeping from his left lower extremity and concern for sepsis. Patient stated his left leg has been red for a long
--- NOTE | 2023-10-25 16:42 | PC.NURSE ---
This patient, Leobardo Loredo, was transferred to [[id number] ] on 10/25/23 at 1642. Personal belongings sent with patient. Report given to [CHUN Brennan @ [phone] ]. Appropriate documentation sent with patient.
--- NOTE | 2023-10-25 16:50 | PC.NURSE ---
Received from [facility] / via bed.
[2023-10-26] VITALS (14 sets, daily range): BP systolic 128–136; BP diastolic 57–66; PULSE 63–82; RESP 18–20; TEMP 36.5–36.6; O2SAT 95–97
[2023-10-26] MEDS: IPRATROPIUM 0.5 MG/ALBUTEROL SULFATE 2.5 MG AMPUL.NEB 3 ML INHALATION ×4 (02:14→19:25)
[2023-10-26] MEDS: VANCOMYCIN 1,500 MG/NS 500 ML 1,500 MG/500 ML BAG 250 MG IVPB ×3 (02:38→18:51)
[2023-10-26] MEDS: CEFEPIME 1 GM/NS 50 ML 1 GM/50 ML BAG IVPB ×3 (05:41→21:07)
[2023-10-26] MEDS: hydroCHLOROthiazide 25 MG TABLET PO (09:17)
[2023-10-26] MEDS: ENOXAPARIN 40 MG/0.4 ML SYRINGE SUB-Q (09:17)
[2023-10-26] MEDS: FUROSEMIDE 40 MG TABLET PO ×2 (09:18→17:02)
[2023-10-26] MEDS: POTASSIUM CHLORIDE 20 MEQ ER TABLET PO ×2 (09:18→17:03)
[2023-10-26] MEDS: atenoloL 25 MG TABLET PO (09:18)
[2023-10-26] MEDS: lisinopriL 20 MG TABLET PO (09:19)
[2023-10-26] MEDS: TOLNAFTATE 1% POWDER 45 GM BTL 1 APPLIC TOPICAL ×2 (09:20→21:11)
[2023-10-26 10:02] LABS: Basophils Percent Auto 0.2 % (0.2-1.2); Eosinophils Percent Auto 0.1 % (0-4.4); Hematocrit 33.5 % (42.0-52.0); Hemoglobin 10.1 g/dL (14.0-18.0); Immature Granulocyte Absolute 0.39 K/mm3 (0.00-0.031); Immature Granulocyte Percent A 2.4 % (0-0.5); Lymphocytes Absolute Auto 1.28 K/mm3 (0.9-3.2); Lymphocytes Percent Auto 7.9 % (18.3-44.2); Mean Corpuscular HGB Conc 30.1 g/dl (32-36); Mean Corpuscular Hemoglobin 25.3 pg (26-34); Mean Corpuscular Volume 83.8 fl (80-100); Monocytes Percent Auto 6.2 % (2.6-8.5); Neutrophils Absolute Auto 13.4 K/mm3 (1.3-6.7); Neutrophils Percent Auto 83.2 % (45.5-73.1); Nucleated Red Blood Cells Perc 0.2 % (0.0-0.2); Platelet Count Result 236 k/mm3 (150-375); Red Cell Distribution Width 17.2 % (11.5-14.5); White Blood Count 16.2 K/mm3 (4.5-10.0)
[2023-10-26 10:11] LABS: Alanine Aminotransferase 23 U/L (6-50); Albumin Level 2.9 g/dL (3.5-5.1); Alkaline Phosphatase 98 U/L (38-126); Anion Gap 5 mmol/L (8-16); Aspartate Amino Transferase 20 U/L (17-59); Bilirubin,Total 0.3 mg/dL (0.2-1.3); Blood Urea Nitrogen 23 mg/dL (9-20); Calcium 8.5 mg/dL (8.4-10.2); Carbon Dioxide 26 mmol/L (22-30); Chloride 105 mmol/L (98-107); Estimated CRCL calculation 149 ml/min; Estimated Glomerular Filt Rate > 60; Glucose 186 mg/dL (65-110); Magnesium 2.1 mg/dL (1.6-2.3); Potassium 3.2 mmol/L (3.4-5.0); Sodium 136 mmol/L (137-145)
[2023-10-26 10:26] LABS: Vancomycin Trough 15.3 ug/mL (10.0-20.0)
--- NOTE | 2023-10-26 13:00 | PM.IMPN ---
Progress Note: A&P Assessment and Plan (1) Sepsis: Qualifiers: Sepsis acute organ dysfunction status: with acute organ dysfunction Sepsis type: sepsis due to unspecified organism Severe sepsis acute organ dysfunction type: encephalopathy Severe sepsis shock status: without septic shock Qualified Code(s): A41.9 - Sepsis, unspecified organism; R65.20 - Severe sepsis without septic shock; G93.41 - Metabolic encephalopathy Code(s): A41.9 - Sepsis, unspecified organism Status: Acute (2) Cellulitis: Qualifiers: Laterality: left Site of cellulitis: extremity Site of cellulitis of extremity: lower extremity Qualified Code(s): L03.116 - Cellulitis of left lower limb Code(s): L03.90 - Cellulitis, unspecified Status: Acute (3) COPD exacerbation: Code(s): J44.1 - Chronic obstructive pulmonary disease with (acute) exacerbation Status: Acute (4) Renal mass: Code(s): N28.89 - Other specified disorders of kidney and ureter Status: Acute Plan [age] year old male with history of MS hypertension morbid obesity presented to the ER via EMS from [facility] for swelling and weeping from his left lower extremity and concern for sepsis. Patient stated his left leg has been red for a long time. He states she has and past few weeks. Was also reporting shortness of breath and cough and audible wheeze reports chest pain which describes as tightness without any aggravating or elevating factors. Denies any abdominal pain nausea vomiting. Reports history of COPD no prior history of smoking. He was hospitalized in August 2023 for sepsis and cellulitis to his lower extremities but left against medical advise at daily to her after being aggressive with the staff and chest vitals meds and blood draws. Per EMS she had fever of 103 uric today and was given Tylenol prior to arrival. Vitals were stable on ED arrival. Was afebrile. He was tachypneic in 25 inspiratory rate and hence was placed on BiPAP for labor breathing. ABG showed alkalosis with normal pCO2. Laboratory evaluation showed leukocytosis of 19 K with no bands hemoglobin is 10.7 which is around baseline Chem panel showed sodium of 131 BUN of 21 crit UA is without infection COVID flu RSV is negative. Chest x-ray showed no acute cardiopulmonary disease. Lactic acid is normal at 1.2. CT head given altered mental status showed findings is a normal pressure hydrocephalus versus prominent central atrophy and moderate cerebral small-vessel disease. CT of the left lower extremity showed severe left lower extremity dermal thickening and subcutaneous inflammation and fluid with marked inguinal and pelvic lymphadenopathy consistent with cellulitis. No abscess detected. There is incidental note of moderate right inguinal lymphadenopathy and mild edema cellulitis in the right lower extremity. CTA PE is nondiagnostic for PE. Suspected to have COPD exacerbation and was placed on Solu Medrol. Will taper of Solu Medrol. CT abdomen pelvis showed hepatomegaly indeterminate 4.0 cm right pole renal mass with recommendations for non emergent CT or MRI. There is evidence of. Aortic bilateral inguinal and bilateral iliac lymphadenopathy. EKG shows sinus rhythm no ischemic changes initial troponin was 0.470 subsequent level was 0.3. Continue DuoNeb take him off of BiPAP and will use p.r.n.. Continue IV antibiotics as ordered with vancomycin will change Zosyn to cefepime ABG 7.46/38/66/26. Bacteremia Gram-positive cocci in cluster appeared today already on vancomycin IV. Will await finalization. Leukocytosis improving Morbid obesity DVT prophylaxis Lovenox Subjective Date/time seen: 10/26/23 13:00 Interval history: [age] year old male with history of MS hypertension morbid obesity presented to the ER via EMS from [facility] for swelling and weeping from his left lower extremity and concern for sepsis. Patient stated his left leg h
[2023-10-26] MEDS: POTASSIUM CHLORIDE 20 MEQ ER TABLET 40 MEQ PO (13:35)
[2023-10-26] MEDS: QUEtiapine FUMARATE 25 MG TABLET 50 MG PO (21:10)
[2023-10-27] VITALS (9 sets, daily range): BP systolic 130–169; BP diastolic 59–77; PULSE 69–81; RESP 16–20; TEMP 36.6–36.9; O2SAT 94–98
--- NOTE | 2023-10-27 | ECHO_ITS ---
Patient Info Name: Leobardo Loredo Age: 58 years : 1965 Gender: Male Ht: 74 in Wt: 402 lbs BSA: 3.18 m2 HR: 79 bpm BP: 130 / 59 mmHg Technical Quality: Poor Exam Date: 10/27/2023 3:42 PM Exam Location: Echo Lab Patient Status: Inpatient Admit Date: 10/24/2023 Staff Ordering Physician: Renato Smith MD Photoengraving Etcher: Noel Craig RDCS Attending Provider: Delfino Willis MD Exam Type: CA echo dop color flow w con Study Info Indications - elevated troponin Complete two-dimensional, color flow and Doppler transthoracic echocardiogram is performed with contrast to opacify the left ventricle and to improve the deliniation of the left ventricle endocardial borders. Contrast/Agitated Saline Contrast/Ag. Saline: Definity Amount: 3.00 ml Reason for Poor Study: poor echocardiographic windows Summary 1. Technically difficult study with limited views. 2. Left ventricular chamber dimension is normal. 3. Left ventricular systolic function is normal, estimated at 55-60%. 4. There is mildly increased left ventricular wall thickness. 5. Right ventricular systolic function is normal. 6. No significant valvular disease appreciated on this study. 7. There is trivial pericardial effusion. Left Ventricle Left ventricular chamber dimension is normal. Left ventricular systolic function is normal, estimated at 55-60%. There is mildly increased left ventricular wall thickness. Right Ventricle Right ventricular chamber dimension is normal. Right ventricular systolic function is normal. Left Atria Left atrial chamber dimension is normal. Right Atria Right atrial chamber dimension is normal. Atrial Septum Intact interatrial septum visualized by color flow imaging. Aortic Valve The aortic valve is not well visualized. There is no aortic valve stenosis. There is no aortic valve regurgitation. Pulmonic Valve The pulmonic valve is not well visualized. Mitral Valve There is trace mitral valve regurgitation. Tricuspid Valve There is trace tricuspid valve regurgitation. Pericardium/Pleural There is trivial pericardial effusion. Inferior Vena Cava Normal inferior vena cava with >50% collapse upon inspiration consistent with normal right atrial pressure, 3 mmHg. Aorta The aortic root size at the sinus of Valsalva is normal. Left Ventricular Outflow Tract Name Value Normal LVOT 2D LVOT Diameter 2.12 cm LVOT Doppler LVOT Peak Gradient 3 mmHg LVOT Mean Gradient 2 mmHg LVOT VTI 26.36 cm LVOT VTI/AV VTI Ratio 0.63 LVOT Stroke Volume 92.59 ml LVOT CO 9.62 l/min LVOT CI 3.03 L/min/m2 Pulmonic Valve Name Value Normal RVOT Doppler RVOT Peak Gradient 3 mmHg PV Doppler ------
[2023-10-27] MEDS: IPRATROPIUM 0.5 MG/ALBUTEROL SULFATE 2.5 MG AMPUL.NEB 3 ML INHALATION ×2 (01:45→20:43)
[2023-10-27] MEDS: VANCOMYCIN 1,500 MG/NS 500 ML 1,500 MG/500 ML BAG 250 MG IVPB ×3 (02:39→18:14)
[2023-10-27] MEDS: CEFEPIME 1 GM/NS 50 ML 1 GM/50 ML BAG IVPB ×3 (06:02→20:31)
[2023-10-27] MEDS: hydroCHLOROthiazide 25 MG TABLET PO (09:09)
[2023-10-27] MEDS: POTASSIUM CHLORIDE 20 MEQ ER TABLET PO ×2 (09:09→18:14)
[2023-10-27] MEDS: FUROSEMIDE 40 MG TABLET PO ×2 (09:10→18:14)
[2023-10-27] MEDS: lisinopriL 20 MG TABLET PO (09:10)
[2023-10-27] MEDS: atenoloL 25 MG TABLET PO (09:10)
--- NOTE | 2023-10-27 12:26 | PM.IMPN ---
Progress Note: A&P Assessment and Plan (1) Sepsis: Qualifiers: Sepsis acute organ dysfunction status: with acute organ dysfunction Sepsis type: sepsis due to unspecified organism Severe sepsis acute organ dysfunction type: encephalopathy Severe sepsis shock status: without septic shock Qualified Code(s): A41.9 - Sepsis, unspecified organism; R65.20 - Severe sepsis without septic shock; G93.41 - Metabolic encephalopathy Code(s): A41.9 - Sepsis, unspecified organism Status: Acute Assessment and Plan: Sepsis present on admission. Per EMS, he had fever of 103 and was given Tylenol prior to arrival. Vitals were stable on ED arrival except was tachypneic with RR 25. Patine placed on BiPAP for labored breathing. WBC up to 21K. Troponins elevated felt related to sepsis. Lactic normal. Source is cellulitis. BCx growing GPC in clusters (anaerobic only). Continue IV abx Followup on culture results. (2) Cellulitis: Qualifiers: Laterality: left Site of cellulitis: extremity Site of cellulitis of extremity: lower extremity Qualified Code(s): L03.116 - Cellulitis of left lower limb Code(s): L03.90 - Cellulitis, unspecified Status: Acute Assessment and Plan: Most likely the source of sepsis. CT left LE showing severe LLE dermal thickening and SQ inflammation/fluid and marked pelvic lymphadenopathy; no abscess. Wound care consult. Elevated LLE Continue dressing changes. Continue localized skin care. (3) Elevated troponin: Code(s): R79.89 - Other specified abnormal findings of blood chemistry Status: Acute Assessment and Plan: Troponin elevated on admission to 0.47 but trending down from there. He reported chest pain which describes as tightness without any aggravating or elevating factors. EKG shows sinus rhythm but no ischemic changes [place] related to sepsis picture Check Echo (4) COPD exacerbation: Code(s): J44.1 - Chronic obstructive pulmonary disease with (acute) exacerbation Status: Acute Assessment and Plan: Patient with COPD. Reported shortness of breath and cough and audible wheeze on admissin. He has a history of COPD but no prior history of smoking. ABG showed alkalosis with normal pCO2 but low pO2. COVID, Influenza and RSV PCR negative. Chest x-ray showed no acute cardiopulmonary disease. CTA PE is nondiagnostic for PE. Suspected to have COPD exacerbation and was placed on Solu Medrol. Steroids stopped now (5) Renal mass: Code(s): N28.89 - Other specified disorders of kidney and ureter Status: Acute Assessment and Plan: CT scan showing indeterminate 4.0 cm right midpole renal mass. Recommend nonemergent but timely CT or MRI of the abdomen and pelvis without and with contrast for further evaluation. UA is clear. Plan for CT with contrast either this admission or as outpatient (6) MS (multiple sclerosis): Code(s): G35 - Multiple sclerosis Status: Acute Assessment and Plan: Patient with hx of MS CT head showing normal pressure hydrocephalus in the appropriate context, versus prominent central atrophy and moderate cerebral small vessel disease. Given his hx of MS, suspect findings related to atrophy. Patient on interferon chronically. (7) Morbid obesity: Code(s): E66.01 - Morbid (severe) obesity due to excess calories Status: Acute Assessment and Plan: BMI 52. Healthy dietary choices recommended. (8) Essential (primary) hypertension: Code(s): I10 - Essential (primary) hypertension Status: Acute Assessment and Plan: Patient's blood pressure was reviewed on 10/27 Blood pressure remains well controlled. Will continue to monitor Plan Code status - DNR DVT prophylaxis Lovenox Subjective Date/time seen: 10/27/23 12:26 Interval history: 58yo male with MS, HTN and lymphedema here for yaquelin
[2023-10-27 14:24] LABS: Basophils Percent Auto 0.3 % (0.2-1.2); Eosinophils Absolute Auto 0.4 K/mm3 (0-0.3); Eosinophils Percent Auto 2.9 % (0-4.4); Hematocrit 36.9 % (42.0-52.0); Immature Granulocyte Absolute 0.46 K/mm3 (0.00-0.031); Immature Granulocyte Percent A 3.6 % (0-0.5); Lymphocytes Absolute Auto 1.56 K/mm3 (0.9-3.2); Lymphocytes Percent Auto 12.3 % (18.3-44.2); Mean Corpuscular HGB Conc 29.8 g/dl (32-36); Mean Corpuscular Hemoglobin 24.9 pg (26-34); Mean Corpuscular Volume 83.7 fl (80-100); Monocytes Absolute Auto 0.9 K/mm3 (0.1-0.6); Monocytes Percent Auto 7.3 % (2.6-8.5); Neutrophils Absolute Auto 9.3 K/mm3 (1.3-6.7); Neutrophils Percent Auto 73.6 % (45.5-73.1); Nucleated Red Blood Cells Perc 0.2 % (0.0-0.2); Platelet Count Result 288 k/mm3 (150-375); Red Blood Count 4.41 M/mm3 (4.6-6.20); Red Cell Distribution Width 17.1 % (11.5-14.5); White Blood Count 12.7 K/mm3 (4.5-10.0)
--- NOTE | 2023-10-27 14:32 | PCPTNOTE ---
Attempted to see patient for PT, however patient was on the bedpan and asked PT to come back.
[2023-10-27 14:35] LABS: Alanine Aminotransferase 20 U/L (6-50); Alkaline Phosphatase 96 U/L (38-126); Anion Gap 4 mmol/L (8-16); Aspartate Amino Transferase 21 U/L (17-59); Bilirubin,Total 0.3 mg/dL (0.2-1.3); Blood Urea Nitrogen 18 mg/dL (9-20); Calcium 8.7 mg/dL (8.4-10.2); Carbon Dioxide 34 mmol/L (22-30); Chloride 100 mmol/L (98-107); Estimated CRCL calculation 133 ml/min; Estimated Glomerular Filt Rate > 60; Glucose 120 mg/dL (65-110); Magnesium 1.8 mg/dL (1.6-2.3); Potassium 3.2 mmol/L (3.4-5.0); Sodium 138 mmol/L (137-145)
[2023-10-27 14:59] LABS: Anisocytosis 1+ (NORMAL); Hypochromasia 1+ (NORMAL); Platelet Estimate Adequate (Adequate); Schistocytes None Seen (NORMAL)
[2023-10-27] MEDS: PERFLUTREN LIPID MICROSPHERES 1.5 ML VIAL DILUTED TO 10 ML TOTAL VOLUME IV PUSH (16:10)
--- NOTE | 2023-10-27 16:31 | IVDEFINITY ---
Prior to administration of IV Definity the patient was educated on the risks and benefits of the imaging enhancing agent including potential adverse side effects. The patient verbalized understanding. Allergies were verified. No exclusion criteria were identified and at least one of the following inclusion criteria were met: 1) physician request, 2) patient technically difficult to image (per the [place] [employer] guidelines of two or more segments not discernable within the apical view), or 3) questionable left ventricular function. ?
[2023-10-27] MEDS: EUCERIN CREAM 120 GM JAR 1 APPLIC TOPICAL (16:51)
[2023-10-27] MEDS: TOLNAFTATE 1% POWDER 45 GM BTL 1 APPLIC TOPICAL ×2 (16:51→20:30)
[2023-10-27] MEDS: ACETAMINOPHEN 325 MG TABLET PO (20:26)
[2023-10-28] VITALS (11 sets, daily range): BP systolic 141–153; BP diastolic 67–72; PULSE 62–75; RESP 16–20; TEMP 35.9–36.2; O2SAT 93–96
[2023-10-28] MEDS: IPRATROPIUM 0.5 MG/ALBUTEROL SULFATE 2.5 MG AMPUL.NEB 3 ML INHALATION ×4 (02:42→20:45)
[2023-10-28] MEDS: VANCOMYCIN 1,500 MG/NS 500 ML 1,500 MG/500 ML BAG 250 MG IVPB ×3 (03:10→18:20)
[2023-10-28] MEDS: CEFEPIME 1 GM/NS 50 ML 1 GM/50 ML BAG IVPB ×3 (06:00→21:03)
[2023-10-28] MEDS: atenoloL 25 MG TABLET PO (09:11)
[2023-10-28] MEDS: THERAPEUTIC MULTIVITAMINS/MINERALS TAB (*BKC) 1 TABLET PO (09:11)
[2023-10-28] MEDS: ASCORBIC ACID 500 MG TABLET PO (09:12)
[2023-10-28] MEDS: FUROSEMIDE 40 MG TABLET PO (09:12)
[2023-10-28] MEDS: hydroCHLOROthiazide 25 MG TABLET PO (09:12)
[2023-10-28] MEDS: lisinopriL 20 MG TABLET PO (09:12)
[2023-10-28] MEDS: POTASSIUM CHLORIDE 20 MEQ ER TABLET PO (09:12)
[2023-10-28] MEDS: EUCERIN CREAM 120 GM JAR 1 APPLIC TOPICAL (09:12)
[2023-10-28] MEDS: TOLNAFTATE 1% POWDER 45 GM BTL 1 APPLIC TOPICAL ×2 (09:12→21:04)
[2023-10-28 10:10] LABS: Basophils Absolute Auto 0.1 K/mm3 (0.0-0.1); Basophils Percent Auto 0.6 % (0.2-1.2); Eosinophils Absolute Auto 0.6 K/mm3 (0-0.3); Eosinophils Percent Auto 5.3 % (0-4.4); Hematocrit 38.7 % (42.0-52.0); Hemoglobin 11.3 g/dL (14.0-18.0); Immature Granulocyte Absolute 0.55 K/mm3 (0.00-0.031); Immature Granulocyte Percent A 5.3 % (0-0.5); Lymphocytes Absolute Auto 1.54 K/mm3 (0.9-3.2); Lymphocytes Percent Auto 14.9 % (18.3-44.2); Mean Corpuscular HGB Conc 29.2 g/dl (32-36); Mean Corpuscular Hemoglobin 24.7 pg (26-34); Mean Corpuscular Volume 84.5 fl (80-100); Mean Platelet Volume 10.6 fl (7.4-10.4); Monocytes Absolute Auto 0.5 K/mm3 (0.1-0.6); Monocytes Percent Auto 5.1 % (2.6-8.5); Neutrophils Absolute Auto 7.1 K/mm3 (1.3-6.7); Neutrophils Percent Auto 68.8 % (45.5-73.1); Nucleated Red Blood Cells Perc 0.3 % (0.0-0.2); Platelet Count Result 299 k/mm3 (150-375); Red Blood Count 4.58 M/mm3 (4.6-6.20); Red Cell Distribution Width 17.2 % (11.5-14.5); White Blood Count 10.3 K/mm3 (4.5-10.0)
[2023-10-28 10:20] LABS: Alanine Aminotransferase 18 U/L (6-50); Albumin Level 3.2 g/dL (3.5-5.1); Alkaline Phosphatase 86 U/L (38-126); Anion Gap 2 mmol/L (8-16); Aspartate Amino Transferase 16 U/L (17-59); Bilirubin,Total 0.4 mg/dL (0.2-1.3); Blood Urea Nitrogen 18 mg/dL (9-20); Calcium 8.8 mg/dL (8.4-10.2); Carbon Dioxide 33 mmol/L (22-30); Chloride 101 mmol/L (98-107); Estimated CRCL calculation 148 ml/min; Estimated Glomerular Filt Rate > 60; Glucose 143 mg/dL (65-110); Magnesium 1.8 mg/dL (1.6-2.3); Potassium 3.3 mmol/L (3.4-5.0); Sodium 136 mmol/L (137-145)
[2023-10-28 10:48] LABS: Vancomycin Trough 16.5 ug/mL (10.0-20.0)
[2023-10-28 11:17] LABS: Hypochromasia 1+ (NORMAL); Platelet Estimate Adequate (Adequate); Schistocytes None Seen (NORMAL)
[2023-10-28] MEDS: POTASSIUM CHLORIDE 20 MEQ PACKET (FOR LIQUID) 40 MEQ PO (13:02)
--- NOTE | 2023-10-28 14:25 | PM.IMPN ---
Progress Note: A&P Assessment and Plan (1) Sepsis: Qualifiers: Sepsis acute organ dysfunction status: with acute organ dysfunction Sepsis type: sepsis due to unspecified organism Severe sepsis acute organ dysfunction type: encephalopathy Severe sepsis shock status: without septic shock Qualified Code(s): A41.9 - Sepsis, unspecified organism; R65.20 - Severe sepsis without septic shock; G93.41 - Metabolic encephalopathy Code(s): A41.9 - Sepsis, unspecified organism Status: Acute Assessment and Plan: Sepsis present on admission. Per EMS, he had fever of 103 and was given Tylenol prior to arrival. Vitals were stable on ED arrival except was tachypneic with RR 25. Patient placed on BiPAP for labored breathing. WBC up to 21K. Troponin elevated felt related to sepsis. Lactic normal. Source is cellulitis. BCx growing GPC in clusters (anaerobic only). Preliminary ID felt to be contaminant Continue IV abx for today but change to oral if BCx truly contaminant Followup on culture results. (2) Cellulitis: Qualifiers: Laterality: left Site of cellulitis: extremity Site of cellulitis of extremity: lower extremity Qualified Code(s): L03.116 - Cellulitis of left lower limb Code(s): L03.90 - Cellulitis, unspecified Status: Acute Assessment and Plan: Most likely the source of sepsis. CT left LE showing severe LLE dermal thickening and SQ inflammation/fluid and marked pelvic lymphadenopathy; no abscess. Wound care consult. Elevate LLE Continue dressing changes. Eucerin to intact skin Continue localized skin care. (3) Elevated troponin: Code(s): R79.89 - Other specified abnormal findings of blood chemistry Status: Acute Assessment and Plan: Troponin elevated on admission to 0.47 but trending down from there. He reported chest pain which describes as tightness without any aggravating or elevating factors. EKG shows sinus rhythm but no ischemic changes Echo showing EF 55-60% [place] related to sepsis picture Continue to monitor (4) COPD exacerbation: Code(s): J44.1 - Chronic obstructive pulmonary disease with (acute) exacerbation Status: Acute Assessment and Plan: Patient with COPD. Reported shortness of breath and cough and audible wheeze on admissin. He has a history of COPD but no prior history of smoking. ABG showed alkalosis with normal pCO2 but low pO2. COVID, Influenza and RSV PCR negative. Chest x-ray showed no acute cardiopulmonary disease. CTA PE is nondiagnostic for PE. Suspected to have COPD exacerbation and was placed on Solu Medrol. Steroids stopped now. No wheezing. Follow (5) Renal mass: Code(s): N28.89 - Other specified disorders of kidney and ureter Status: Acute Assessment and Plan: CT scan showing indeterminate 4.0 cm right midpole renal mass. Recommend nonemergent but timely CT or MRI of the abdomen and pelvis without and with contrast for further evaluation. UA is clear. Check CT with contrast for further evaluation. (6) MS (multiple sclerosis): Code(s): G35 - Multiple sclerosis Status: Acute Assessment and Plan: Patient with hx of MS CT head showing normal pressure hydrocephalus in the appropriate context, versus prominent central atrophy and moderate cerebral small vessel disease. Given his hx of MS, suspect findings related to atrophy. Patient on interferon chronically. Patient to follow up with Neurology. (7) Morbid obesity: Code(s): E66.01 - Morbid (severe) obesity due to excess calories Status: Acute Assessment and Plan: BMI 52. Healthy dietary choices recommended. (8) Essential (primary) hypertension: Code(s): I10 - Essential (primary) hypertension Status: Acute Assessment and Plan: Patient's blood pressure was reviewed on Blood pressure remains reasonably well controlled. Will cont
--- NOTE | 2023-10-28 20:55 | PC.NURSE ---
At approx. 2054, came in to check on pt because IV was beeping. Introduced myself and told pt I would do my assessment and give him his night time medication. Pt asked me what medication was I planning on giving him and I told him he had Seroquel, an antibiotic, a cream, and a powder scheduled. Pt stated he did not want the Seroquel and I have never taken that. Pt also asked what did he even need the antibiotic for. Explained to pt that the antibiotic is to help with the infection in his leg that way he can get out of here [the hospital]. Pt began to yell stating No one ever wants to help me get out of here. They only want to keep me here in bed, peeing on myself, and give me no humanity. While stating this pt was swatting his hands and ended up hitting my hand. Told pt it was not necessary to yell or to hit, and that he has a [place] on that should be suctioning his urine, if we need to clean him up we can do so at a later moment.
--- NOTE | 2023-10-29 00:38 | PC.NURSE ---
PT CONTINUES TO REFUSE TO USE URINAL. PT IS CHOOSING TO BE INCONTINENT STATING HE CANNOT REACH HIS URINAL. URINAL HAS BEEN WITHIN REACH ALL NIGHT ON BEDSIDE TABLE. STAFF HAVE HAD TO COMPLETE MULTIPLE FULL BED CHANGES ON PT BECAUSE HE IS FREQUENTLY URINATING THE BED. ADONIS MAZA HAS BEEN IN THE ROOM ASSISTING THE PT AT EVERY REQUEST. HE YELLS OUT AND DEMANDS WE CLEAN HIM UP AFTER PURPOSELY URINATING ON HIMSELF AND THEN CONTINUES TO YELL AND VERBALLY ASSAULT STAFF WHEN WE ASK HIM TO USE THE URINAL. I JUST SPOKE WITH THE PT ABOUT IMPORTANCE OF USING URINAL TO PREVENT SKIN BREAKDOWN AND HE RESPONDED BY YELLING EXPLETIVES AT ME AND ACCUSING STAFF OF NOT HELPING HIM. I PERSONALLY HAVE BEEN IN THE ROOM MULTIPLE TIMES AND HAVE CONTINUED TO WITNESS OTHER STAFF ANSWER PT CALL LIGHTS AND ENTER ROOM TO ASSIST PT AT EVERY REQUEST.
[2023-10-29 04:06] VITALS: BP 163/75; PULSE 77; RESP 22; TEMP 36.4; O2SAT 94
--- NOTE | 2023-10-29 04:33 | PC.NURSE ---
Pt refusing blood draw at this time. Educated pt on importance of the importance of lab work. Pt continues yelling about not liking what is done here. Asked lab assistance to reschedule lab draw time.
--- NOTE | 2023-10-29 04:53 | PC.NURSE ---
PT CONTINUES TO BE DISRUPTIVE AND VERBALLY ABUSIVE. SCREAMING OUT AND YELLING AT STAFF. PT WAS YELLING AT FELLOW NURSE IMELDA BEFORE I CAME TO ROOM. I ENTERED ROOM TO SPEAK WITH PT ABOUT THE REASON HE IS YELLING. HE CONTINUED TO YELL AT ME STATING HE DID NOT WANT TO BE ASKED TO DO ANYTHING OR TAKE ANY MEDICATIONS. PT HAS BEEN FREQUENTLY REFUSING MEDS AND LAB DRAWS. I ASKED THE PT TO CLARIFY THAT HE DID NOT WANT ANY TREATMENT FROM ANY STAFF MEMBER. HE STATED HE DID NOT WANT TO DO ANYTHING WE ASK HIM. I TOLD PT WE WOULD NO LONGER ASK HIM TO PARTICIPATE IN CARE IF HE WOULD NOT LIKE TO. HE CONTINUED TO YELL AND ACT IF HE WERE GOING TO THROW HIS CALL LIGHT AT ME SO I LEFT THE ROOM. PT IS NOW CALLING UP TO THE DESK YELLING AT EVERYONE WHO ANSWERS ACTING BELLIGERENT AND CURSING. PT STATES NO ONE IS HELPING HIM BUT EVERY TIME SOMEONE ENTERS THE ROOM HE IS AGGRESSIVE AND SCREAMS AT THEM. STAFF IS NOW UNCOMFORTABLE BEING IN ROOM WITH PT BECAUSE OF THIS BEHAVIOR. EMPLOYEE DEVELOPMENT SPECIALIST HAS BEEN NOTIFIED MULTIPLE TIMES AND IS AWARE OF PT BEHAVIOR.
[2023-10-29 07:44] VITALS: O2SAT 94
[2023-10-29] MEDS: IBUPROFEN 400 MG TABLET PO (08:04)
[2023-10-29] MEDS: lisinopriL 20 MG TABLET PO (08:05)
[2023-10-29] MEDS: ACETAMINOPHEN 325 MG TABLET PO (10:41)
--- NOTE | 2023-10-29 12:03 | WPDURCON ---
Assessment and Plan Assessment and plan (1) Renal cell carcinoma: Code(s): C64.9 - Malignant neoplasm of unspecified kidney, except renal pelvis Status: Acute Assessment and Plan: 4.1 cm enhancing right renal mass consistent with renal cell carcinoma Patient states he is not interested in any type of treatment. We discussed that prompt treatment is recommended and untreated renal cell carcinoma can lead to many complications including kidney failure, metastases and . He is aware but remains uninterested in pursuing treatment Should he change his mind and wish to seek treatment, would recommend follow up at tertiary care center such as [facility] or [facility] given his comorbidities. Urology Consult Note HPI Date Seen: 10/29/23 Requesting Physician: Delfino Gerard Ala, MD Primary Care Provider: SHIPPING AND RECEIVING COORDINATOR PHYSICIAN Consult Narrative Narrative: Leobardo Loredo is a 58 year old male with a history of mutliple sclerosis and morbid obesity who is being seen in consultation for evaluation of likely renal cell carcinoma. He was admitted on 10/23/23 for sepsis due to cellulitis. He had a CTA of chest/abd/pelvis which demonstrated a 4.0 cm right mid pole renal mass. A follow up CT of the abd/pelvis with/without contrast was completed that showed a 4.1 cm right renal enhancing mass consistent with renal cell carcinoma. The patient denies history of hematuria, flank pain, back pain, fever, or chills. His UA is unremarkable. I discussed these findings with him in detail. He states he is not interested in considering any type of treatment options. Review of Systems Review of Systems: All systems reviewed & are unremarkable except as noted in HPI and below PMFSH Past Medical History Medical History Chronic acquired lymphedema Essential (primary) hypertension Morbid obesity MS (multiple sclerosis) Overflow incontinence Family History Family History Grandparent Family history of tuberculosis Hypertension Family history of malignant neoplasm Family history of heart disease in male family member before age 55 Sibling Family history of migraine headaches Hypertension Father Family history of malignant neoplasm Family history of heart disease in male family member before age 55 Mother Family history of malignant neoplasm Family history of heart disease in male family member before age 55 Social History Social History Smoking status: Former smoker Alcohol intake: never Substance use: never Substance use type: does not use Do You Feel Safe in your Home?: Yes Lack of Transportation: No Lack of Food: Never True Current Housing: I Have Housing Concerned About Future Housing: YES Difficulty Paying Gas/Electric Bills: No Difficulty Paying for Meds: No Currently Unemployed: No Education: High School Diploma/GED Difficulty w/ Childcare or Family Care: No Spiritual care concerns: No Meds Home Medications and Allergies Home Medications Medication Instructions Recorded Confirmed Type ascorbic acid (vitamin C) 500 mg 500 mg PO DAILY 09/02/23 10/24/23 History tablet atenolol 25 mg tablet 25 mg PO DAILY 09/02/23 10/24/23 History docusate sodium 100 mg tablet 100 mg PO DAILY 09/02/23 10/24/23 History lisinopril 20 mg tablet 20 mg PO DAILY 09/02/23 10/24/23 History meclizine 25 mg tablet 25 mg PO DAILY 09/02/23 10/24/23 History miconazole nitrate 2 % topical 1 applic topical DAILY 09/02/23 10/24/23 History powder quetiapine 50 mg tablet (Seroquel) 50 mg PO HS 09/02/23 10/24/23 History silver sulfadiazine 1 % topical 1 applic topical DAILY 09/02/23 10/24/23 History cream (Silvadene) acetaminophen 325 mg tablet 325 mg PO Q4H PRN Mild Pain (Scale 10/24/23 10/24/23 History Score 1-4) bisacodyl 10 mg rectal suppository
--- NOTE | 2023-10-29 12:44 | PM.DS ---
DS: Admitting Diagnosis Discharge Date 10/29/23 Admitting Diagnosis Weakness DS: Discharge Diagnosis Discharge Diagnosis (1) Sepsis: Qualifiers: Sepsis acute organ dysfunction status: with acute organ dysfunction Sepsis type: sepsis due to unspecified organism Severe sepsis acute organ dysfunction type: encephalopathy Severe sepsis shock status: without septic shock Qualified Code(s): A41.9 - Sepsis, unspecified organism; R65.20 - Severe sepsis without septic shock; G93.41 - Metabolic encephalopathy Code(s): A41.9 - Sepsis, unspecified organism Status: Acute (2) Cellulitis: Qualifiers: Laterality: left Site of cellulitis: extremity Site of cellulitis of extremity: lower extremity Qualified Code(s): L03.116 - Cellulitis of left lower limb Code(s): L03.90 - Cellulitis, unspecified Status: Acute (3) Elevated troponin: Code(s): R79.89 - Other specified abnormal findings of blood chemistry Status: Acute (4) COPD exacerbation: Code(s): J44.1 - Chronic obstructive pulmonary disease with (acute) exacerbation Status: Acute (5) MS (multiple sclerosis): Code(s): G35 - Multiple sclerosis Status: Acute (6) Morbid obesity: Code(s): E66.01 - Morbid (severe) obesity due to excess calories Status: Acute (7) Essential (primary) hypertension: Code(s): I10 - Essential (primary) hypertension Status: Acute (8) Renal cell carcinoma: Code(s): C64.9 - Malignant neoplasm of unspecified kidney, except renal pelvis Status: Acute DS: Summary Hospital Course Reason for hospitalization: 58yo male with MS, HTN and lymphedema here for weakness and LLE edema. Please see H&P for details. Hospital Course: Patient with weakness and found to have sepsis present on admission. Per EMS, he had fever of 103 and was given Tylenol prior to arrival.? Vitals were stable on ED arrival except he was tachypneic with RR 25. Patient placed on BiPAP for labored breathing.? WBC up to 21K. Troponin elevated on admission to 0.47 but trending down from there. He reported chest pain which describes as tightness without any aggravating or elevating factors. EKG shows sinus rhythm but no ischemic changes. Echo showing EF 55-60%. [place] elevated Troponin related to sepsis picture. Lactic normal. Source was cellulitis. BCx growing GPC in clusters (anaerobic only). Preliminary ID felt to be contaminant. CT left LE showing severe LLE dermal thickening and SQ inflammation/fluid and marked pelvic lymphadenopathy; no abscess. Venous doppler negative for DVT. Wound care consulted.?We continued dressing changes. Eucerin to intact skin. Patient with history of COPD but no prior history of smoking. Reported shortness of breath and cough and audible wheeze on admission. ABG showed alkalosis with normal pCO2 but low pO2. COVID, Influenza and RSV PCR negative.?Chest x-ray showed no acute cardiopulmonary disease. CTA PE is nondiagnostic for PE.?Suspected to have COPD exacerbation and was placed on Solu Medrol. Symptoms resolved and steroids weaned off. Patient with hx of MS. CT head showing normal pressure hydrocephalus in the appropriate context, versus prominent central atrophy and moderate cerebral small vessel disease. Given his hx of MS, suspect findings are chronic related to atrophy. Patient on interferon chronically but held while active infection. Patient to follow up with Neurology after discharge. CT scan showing indeterminate 4.0 cm right midpole renal mass. Recommend nonemergent but timely CT or MRI of the abdomen and pelvis without and with contrast for further evaluation. UA was clear. CT abdomen with contrast showing a 4.1cm enhancing right renal mass consistent with renal cell carcinoma. Patient was seen by urology. Patient states he is not interested in any type of treatment. Urology discussed that prompt treatment is recommended and untreated renal cell carcinom
[2023-10-29] MEDS: IPRATROPIUM 0.5 MG/ALBUTEROL SULFATE 2.5 MG AMPUL.NEB 3 ML INHALATION (13:37)
[2023-10-29 13:38] VITALS: PULSE 82; RESP 16
[2023-10-29 13:49] VITALS: PULSE 76; RESP 16
--- NOTE | 2023-10-29 14:06 | PCPTNOTE ---
Attempted to see patient for PT, however patient was working with OT.
[2023-10-29 14:19] VITALS: BP 145/65; PULSE 79; RESP 18; TEMP 36.8; O2SAT 95
[2023-10-29 14:53] LABS: Hematocrit 36.6 % (42.0-52.0); Mean Corpuscular HGB Conc 30.1 g/dl (32-36); Mean Corpuscular Hemoglobin 24.7 pg (26-34); Mean Corpuscular Volume 82.2 fl (80-100); Mean Platelet Volume 10.2 fl (7.4-10.4); Platelet Count Result 342 k/mm3 (150-375); Red Blood Count 4.45 M/mm3 (4.6-6.20); Red Cell Distribution Width 16.8 % (11.5-14.5); White Blood Count 10.2 K/mm3 (4.5-10.0)
[2023-10-29 15:04] LABS: Anion Gap 1 mmol/L (8-16); Blood Urea Nitrogen 15 mg/dL (9-20); Calcium 8.8 mg/dL (8.4-10.2); Carbon Dioxide 34 mmol/L (22-30); Chloride 100 mmol/L (98-107); Estimated CRCL calculation 148 ml/min; Estimated Glomerular Filt Rate > 60; Glucose 126 mg/dL (65-110); Magnesium 1.9 mg/dL (1.6-2.3); Potassium 3.5 mmol/L (3.4-5.0); Sodium 135 mmol/L (137-145)
--- NOTE | 2023-11-03 08:38 | PC.NURSE ---
Blood cx results provided to Dr. Smith.
== END 2023-10-29 16:05 | DRG 871 ==
LOC: ANHED 22:12 → ANHIMU 23:21 → ANH3MEDSUR 10-25 13:41 → ANHIMU 10-25 13:44 → ANH2MED 10-25 16:47
PROVIDERS: Internal Medicine; Admitting Provider Internal Medicine Infectious Disease; Emergency Provider Physician Assistant; Visit Provider Internal Medicine
DX: A41.9 Sepsis, unspecified organism (principal); G93.41 Metabolic encephalopathy; L03.116 Cellulitis of left lower limb; J44.1 Chronic obstructive pulmonary disease with (acute) exacerbation; Z68.43 Body mass index [BMI] 50.0-59.9, adult; C64.1 Malignant neoplasm of right kidney, except renal pelvis; B96.89 Other specified bacterial agents as the cause of diseases classified elsewhere; R65.20 Severe sepsis without septic shock; R79.89 Other specified abnormal findings of blood chemistry; I89.0 Lymphedema, not elsewhere classified; I10 Essential (primary) hypertension; G35 Multiple sclerosis; E66.01 Morbid (severe) obesity due to excess calories; Z66 Do not resuscitate; Z20.822 Contact with and (suspected) exposure to COVID-19
CPT/HCPCS: 36415; 36600; 70450; 71045; 71275; 73701; 74170; 74177; 80048; 80053; 80202; 81001; 82140; 82565; 82805; 83605; 83690; 83735; 83880; 84443; 84484; 85025; 85027; 85610; 85730; 86140; 87040; 87077; 87637; 93005; 93970; 94002; 94003; 94640; 96361; 96365; 96366; 96367; 96375; 97110; 97161; 97166; 97530; 97535; 99285; A9270; C8929; G0378; J0692; J1650; J2543; J2930; J3370; J7030; Q9957; Q9967